=== PATIENT | male | born 1985 | race Caucasian/White ===

== ENCOUNTER 2020-09-10 22:57 | Emergency (ER) | payer BC, SELFPAY ==
[2020-09-10 23:07] VITALS: BP 136/93; PULSE 135; RESP 18; TEMP 37; O2SAT 97; BMI 20.7
--- NOTE | 2020-09-10 23:14 | HMH.EDMCLR ---
ED Disposition Clinical Impression: Medical clearance for incarceration Disposition: Home, Self-Care Condition on Discharge: Good Instructions: DI for General Condition Additional Instructions: see pcp for follow up Referrals: Vincent Asencio MD [Primary Care Provider] - - Critical Care Critical Care Time: No Attestation: On , the high probability of a clinically significant, sudden or life threatening deterioration of the following system(s) required my full and direct attention, intervention and personal management. The time I documented below is in addition to time spent performing reported procedures but includes the following listed in this critical care notation. Medical Decision Making - Medical Records Medical records reviewed: Yes: I reviewed the patient's medical records. - Afshin Inquiry Pt receiving controlled substance: No Vital Signs: 09/10/20 23:07 Temperature 98.6 F Temperature Source Oral Pulse Rate [Right] 135 H Respiratory Rate 18 Blood Pressure [Right Arm] 136/93 H Blood Pressure Mean [Right Arm] 107 Blood Pressure Source [Right Arm] Automatic Cuff Blood Pressure Position [Right Arm] Sitting 02 Sat by Pulse Oximetry 97 Oxygen Delivery Method Room Air - Lab Data Lab results reviewed: Yes: I reviewed the patient's lab results. Medical Clearance HPI - General Chief complaint: Medical Clearance Stated complaint: Medical clearance Time Seen by Provider: 09/10/20 23:14 Mode of Arrival: Ambulatory Source of Information: Patient, Law Enforcement, Medical Record Limitations: No Limitations Description of Symptoms (Recalled from ER Triage Doc. by RN): Pt is a police medical clearance no c/o at this time - History of Present Illness HPI Narrative: no specific c/o MD complaint: medical clearance requested Place: home Traumatic Symptoms: denies traumatic injury Associated Symptoms: denies other symptoms Treatments Prior to Arrival: none [facility] History - Hepatitis A Screen Drug use history?: No High risk sexual behaviors?: No History of sexually transmitted infection?: No Currently employed?: No Childcare worker?: No Do you have indoor plumbing?: Yes Do you have electricity?: Yes Attestation statement:: This patient has been screened for Hepatitis A risk factors. I have reviewed the patient's past medical history: Yes Medical History: Denies:: Diabetes Mellitus Type 1, Diabetes Mellitus Type 2 - Social History Smoking Status: Current every day smoker Tobacco Type: cigarettes # Packs/Day (cigarettes): 2 Alcohol Intake: current Alcohol Intake Frequency:: 3 or more drinks per day Occupational Status: employed ROS Obtained: Yes All systems reviewed & no additional complaints - Constitutional Constitutional: Denies fever(s) - Eyes Eyes: Denies change in vision - ENT Ears, Nose, Mouth, and Throat: Denies sore throat - Cardiovascular Cardiovascular: Denies chest pain - Respiratory Respiratory: Denies cough - Gastrointestinal Gastrointestingal: Denies: abdominal pain - Genitourinary Male Genitourinary: Denies hematuria - Musculoskeletal Musculoskeletal: Denies joint pain - Integumentary/Breasts Skin/Breast: Denies rash - Neurologic Neurologic: Denies seizure-like activity Physical Exam - General General appearance: alert, in no apparent distress - Head Head exam: normocephalic - Eye Eye exam: Present: PERRL, EOMI. Absent: scleral icterus - ENT ENT exam: Present: mucous membranes moist - Neck Neck exam: Present: trachea midline - Respiratory Respiratory exam: Present: normal lung sounds bilaterally. Absent: respiratory distress - Cardiovascular Cardiovascular exam: Present: regular rate. Absent: systolic murmur - Abdominal Exam Abdominal exam: Present: soft - Extremities Exam Extremities exam: Present: full ROM - Neurological Exam Neurological exam: Present: alert, oriented X3, CN II-XII intact. Absent:
[2020-09-10 23:19] VITALS: BP 136/93; PULSE 135; RESP 18; TEMP 37; O2SAT 97
== END 2020-09-10 23:19 | disposition home or self-care (01) ==
LOC: ER 23:35
PROVIDERS: Emergency Provider Emergency Medicine; PCP Family Medicine
DX: Z00.8 Encounter for other general examination (principal); F10.10 Alcohol abuse, uncomplicated; F17.210 Nicotine dependence, cigarettes, uncomplicated; J45.909 Unspecified asthma, uncomplicated; R03.0 Elevated blood-pressure reading, without diagnosis of hypertension
CPT/HCPCS: 99282

== ENCOUNTER 2021-05-21 11:56 | Emergency (ER) | payer BC, SELFPAY ==
[2021-05-21 12:44] VITALS: BP 134/77; PULSE 97; RESP 14; TEMP 36.9; O2SAT 97
--- NOTE | 2021-05-21 12:51 | HMH.EDUTC ---
[facility] [place] Disposition Clinical Impression: URI (upper respiratory infection) Qualifiers: URI type: unspecified URI Qualified Code(s): J06.9 - Acute upper respiratory infection, unspecified Disposition: Home, Self-Care Condition on Discharge: Good Instructions: Sore Throat, Ondansetron, Nausea and Vomiting-Adult Additional Instructions: *Monitor Temp, Over the counter Motrin or Tylenol as directed/as needed Tylenol every 4 hours and Motrin every 6 hours (as long as your family doctor has told you that you can take it) for fever or pain. and straight to ER if unable to lower temp less than 101.0 after medication given *Warm salt water gargles may help to soothe the throat *Throat Lozenges *Warm fluids like tea with honey may help to soothe the throat *Sleep elevated *Humidifier/Vaporizer Your throat swab was sent for culture. Those results are typically sent to your primary care. Be sure to follow up in 2-3 days with your family doctor/primary care physician if no improvement so they can review those result and treat if necessary. If you don?t have a primary care doctor, I recommend you get one but in the mean time, you will have to return to a walk in clinic Follow up IMMEDIATELY for new or worsening symptoms or no Noticeable improvement over the next 48-72 hours. 911 for difficulty breathing or swallowing You were tested for today for COVID19 your test result should be back in the next 24-48 hours, you may check your results online at the [facility] portal if you have trouble accessing your results you may call the [facility] You was given a handout with instructions for Self Quarantine and Self isolation for while you wait on test results and what to do if they are positive If you are positive the Health Dept will be contacting you also Make sure to take your Vitamins Vit. C Vit D and Zinc if you can take them Prescriptions: Ondansetron [Zofran 4mg ODT] 4 mg PO TIDP PRN #20 tab PRN Reason: Nausea Transmission Status: Received by [facility] #[id number] Referrals: Vincent Asencio MD [Primary Care Provider] - As needed Forms: Work/School Release Time of Disposition: 13:33 Medical Decision Making - Afshin Inquiry Pt receiving controlled substance: No Afshin was queried for this patient: No Vital Signs: 05/21/21 12:44 05/21/21 13:22 Temperature 98.5 F 98.5 F Temperature Source Oral Pulse Rate 97 H Pulse Rate [Left] 97 H Respiratory Rate 14 16 Blood Pressure 134/77 Blood Pressure [Right Arm] 134/77 Blood Pressure Mean [Right Arm] 96 02 Sat by Pulse Oximetry 97 - Lab Data Lab results reviewed: Yes: I reviewed the patient's lab results. Lab Results 05/21/21 12:45: Strep Scn Rapid Clinic Negative Orders (Tests/Meds): ED MEDICATIONS Discontinued Medications Generic Name Dose Route Start Last Admin Trade Name Freq PRN Reason Stop Dose Admin Ondansetron HCl 4 mg 05/21/21 12:56 05/21/21 13:00 Ondansetron 4mg Odt SL 05/21/21 12:57 4 mg ONCE ONE Administration ORDERS Category Date Time Status Covid-19 Nasal PCR ([facility]) Routine Lab 05/21/21 12:50 Received Strep Screen Confirmation Routine Micro 05/21/21 12:45 Received Medical Decision Narrative: Patient drink seira mist in [facility] without vomiting [facility] [place] HPI - General Stated complaint: sore throat, unable to swallow/eat Time Seen by Provider: 05/21/21 12:51 Mode of Arrival: Ambulatory Source of Information: Patient Limitations: No Limitations Description of Symptoms (Recalled from Triage Doc. by RN): pt c/o of sore throat, swollen tonsils and painful swallowing. HEENT Symptoms (Recalled from RN notes): Yes (sore throat, swollen tonsils and painful swallowing) Resp Symptoms (Recalled from RN notes): No Skin Symptoms (Recalled from RN notes): No MS Symptoms (Recalled from RN notes): No Functional Status (Recalled from RN notes): na - History of Present Illness Provider Complaint: Patient state that his thro
[2021-05-21 13:06] LABS: UTC Strep Screen (Rapid) Negative (Negative)
[2021-05-21 13:22] VITALS: BP 134/77; PULSE 97; RESP 16; TEMP 36.9
== END 2021-05-21 13:52 | disposition home or self-care (01) ==
PROVIDERS: Emergency Provider Nurse Practitioner; PCP Family Medicine
DX: J06.9 Acute upper respiratory infection, unspecified (principal); Z20.822 Contact with and (suspected) exposure to COVID-19; F17.210 Nicotine dependence, cigarettes, uncomplicated
CPT/HCPCS: 87880; 99202; C9803; G0463; U0003; U0005

== ENCOUNTER → 2021-08-18 11:04 | Outpatient (CLI) | payer OTHER, SELFPAY | PROVIDERS: PCP Family Medicine; Visit Provider Nurse Practitioner | DX: U07.1 COVID-19 (principal) | CPT/HCPCS: C9803; U0003; U0005 ==

== ENCOUNTER 2022-02-20 22:58 | Observation (INO) | payer OTHER, SELFPAY ==
[2022-02-20 23:00] VITALS: BP 121/89; PULSE 120; RESP 16; TEMP 37; O2SAT 99; BMI 18.6
--- NOTE | 2022-02-20 23:14 | ECG_ITS ---
APPROVED REPORT Exam: Resting ECG HR:114 bpm ECG Measurements Heart Rate 114 AXES AK 104 P 74 QRSd 85 QRS 78 QT 330 T 61 QTc 398 Conclusion SINUS TACHYCARDIA WITH SHORT AK INTERVAL POSSIBLE LEFT ATRIAL ENLARGEMENT [-0.1mV P-WAVE IN V1/V2] ABNORMAL RHYTHM ECG UNCONFIRMED REPORT Electronically signed by : Rahul Doan MD 02/22/2022 20:38:44
[2022-02-20 23:23] LABS: POC Glucose,Bedside 102 (70-110)
--- NOTE | 2022-02-20 23:28 | PC.NURSE ---
at BS speaking with pt
[2022-02-20 23:30] VITALS: BP 123/92; RESP 14; O2SAT 97
--- NOTE | 2022-02-20 23:30 | PC.NURSE ---
IV access was established and pt was nauseated with dry heaves. He was given fluids and 4mg of zofran. MD was at bedside speaking with pt and his mother. After speaking with pt he was helped into position of comfort, provided warm blankets, emesis bag at bedside with call light attached to rail and instructed on use. Lights were turned down and pt had no other needs.
--- NOTE | 2022-02-20 23:34 | XR_ITS ---
PROCEDURE INFORMATION: Exam: XR Chest Exam date and time: 02/20/2022 11:54 PM Age: 37 years old Clinical indication: Other: AMS TECHNIQUE: Imaging protocol: Radiologic exam of the chest. Views: 1 view. COMPARISON: No relevant prior studies available. FINDINGS: Lungs: Adequately inflated. No consolidation. Pleural spaces: No pleural effusion. No pneumothorax. Heart/Mediastinum: No cardiomegaly. Bones/joints: No acute fracture. IMPRESSION: No acute findings.
[2022-02-20 23:45] LABS: Basophils # 0.2 K/mm3 (0-0.2); Basophils % 1.7 % (0.1-2.0); Eosinophils # 0.2 K/mm3 (0.0-0.4); Eosinophils % 1.5 % (0.1-12.0); Hematocrit 54.2 % (42.0-52.0); Hemoglobin 17.3 g/dL (14.1-18.0); Lymphocytes # 4.7 K/mm3 (0.7-4.5); Lymphocytes % 33.3 % (10-50); Mean Corpuscular Hemoglobin 36.3 pg (27.0-31.2); Mean Corpuscular Volume 113.4 fl (80-94); Mean Platelet Volume 8.2 fl (7.4-10.4); Monocytes # 0.9 K/mm3 (0.1-1.0); Monocytes % 6.4 % (1.7-9.3); Neutrophils # 8.1 K/mm3 (1.8-7.8); Neutrophils % 57.2 % (37.0-80.0); Platelet Count 458 K/mm3 (142-424); Red Blood Count 4.78 M/mm3 (4.60-6.20); Red Cell Distribution Width 15.4 % (11.5-17.5); White Blood Count 14.2 K/mm3 (4.8-10.8)
--- NOTE | 2022-02-20 23:45 | PC.NURSE ---
RAD at BS for chest XRAY
--- NOTE | 2022-02-20 23:46 | HMH.EDGENADL ---
ED Disposition Clinical Impression: Acute alcoholic pancreatitis Qualifiers: Acute pancreatitis complication: unspecified Qualified Code(s): K85.20 - Alcohol induced acute pancreatitis without necrosis or infection Disposition: Admitted As Inpatient Condition on Discharge: Good - Critical Care Critical Care Time: No Attestation: On 02/20/22, the high probability of a clinically significant, sudden or life threatening deterioration of the following system(s) required my full and direct attention, intervention and personal management. The time I documented below is in addition to time spent performing reported procedures but includes the following listed in this critical care notation. Medical Decision Making - Afshin Inquiry Pt receiving controlled substance: No Vital Signs: 02/20/22 23:00 02/20/22 23:30 02/21/22 00:00 Temperature 98.6 F Temperature Source Oral Pulse Rate Pulse Rate [Right] 120 H Respiratory Rate 16 14 Blood Pressure 123/92 H 130/90 Blood Pressure [Right Arm] 121/89 Blood Pressure Mean 103 Blood Pressure Mean [Right Arm] 99 Blood Pressure Source Blood Pressure Source [Right Arm] Automatic Cuff Blood Pressure Position Blood Pressure Position [Right Arm] Sitting 02 Sat by Pulse Oximetry 99 97 96 Oxygen Delivery Method Room Air 02/21/22 00:30 02/21/22 01:00 02/21/22 01:03 Temperature Temperature Source Pulse Rate 103 H 100 H Pulse Rate [Right] Respiratory Rate 16 Blood Pressure 121/84 124/88 124/88 Blood Pressure [Right Arm] Blood Pressure Mean 96 Blood Pressure Mean [Right Arm] Blood Pressure Source Automatic Cuff Blood Pressure Source [Right Arm] Blood Pressure Position Sitting Blood Pressure Position [Right Arm] 02 Sat by Pulse Oximetry 97 97 98 Oxygen Delivery Method Room Air - Lab Data Lab Results 02/20/22 23:13: POC Glucose 102 02/20/22 23:32: WBC 14.2 H, RBC 4.78, Hgb 17.3, Hct 54.2 H, MCV 113.4 H, MCH 36.3 H, MCHC 32.0, RDW 15.4, Plt Count 458 H, MPV 8.2, Neut % (Auto) 57.2, Lymph % (Auto) 33.3, [place] % (Auto) 6.4, Eos % (Auto) 1.5, Baso % (Auto) 1.7, Neut # (Auto) 8.1 H, Lymph # (Auto) 4.7 H, [place] # (Auto) 0.9, Eos # (Auto) 0.2, Baso # (Auto) 0.2 02/20/22 23:32: PT 10.6, INR 0.93, APTT 23.2 02/20/22 23:32: Sodium 146 H, Potassium 3.1 L, Chloride 106, Carbon Dioxide 28, Anion Gap 15.1 H, BUN 10, Creatinine 0.60 L, Estimated GFR 150, Est GFR ( Amer) 181, Glucose 116 H, Calcium 9.6, Magnesium 1.6, Total Bilirubin 0.4, AST 79 H, ALT 55, Alkaline Phosphatase 154 H, Troponin I < 0.01, Total Protein 7.8, Albumin 4.7, Globulin 3.1, Albumin/Globulin Ratio 1.5, Lipase 969 H 02/20/22 23:32: Lactate 3.3 H 02/20/22 23:32: Plasma/Serum Alcohol 322 H 02/20/22 23:32: D-Dimer 0.86 H 02/20/22 23:34: VBG pH 7.37, VBG pCO2 36.1, VBG pO2 43.9 H, VBG HCO3 20.6 L, VBG Total CO2 21.7 L, VBG O2 Saturation 78.2 H, VBG Base Excess -4.6 L 02/20/22 23:55: Ammonia < 9 L 02/20/22 23:55: SARS-CoV-2 (PCR) Detected A, Influenza A Untype (PCR) Not detected, Influenza Type B (PCR) Not detected Result diagrams: 02/20/22 23:32 02/20/22 23:32 Orders (Tests/Meds): ED MEDICATIONS Generic Name Dose Route Start Last Admin Trade Name Freq PRN Reason Stop Dose Admin Diazepam 10 mg 02/21/22 01:18 Diazepam 10mg/2ml Syringe IV 03/23/22 01:17 Q1HP PRN CIWA >16 Diazepam 5 mg 02/21/22 01:18 Diazepam 10mg/2ml Syringe IV 03/23/22 01:17 Q1HP PRN CIWA Score 8-15 Diazepam 5 mg 02/21/22 01:18 Diazepam 5mg Tablet PO 03/23/22 01:17 Q6HP PRN CIWA 2-7 Famotidine 20 mg 02/21/22 09:00 Famotidine 20mg/2ml Vial IV 03/23/22 08:59 BID MUKESH Folic Acid 1 mg 02/21/22 09:00 Folic Acid 1mg Tablet PO 03/23/22 08:59 DAILY MUKESH Haloperidol Lactate 5 mg 02/21/22 01:18 Haloperidol Lactate 5 Mg/Ml Vial IV 03/23/22 01:17 Q1HP PRN Agitation Lactated Ringer's 1,000 mls @ 999 mls/hr 0
[2022-02-20 23:47] LABS: Chloride 106 mmol/L (98-107); Potassium 3.1 mmoL/L (3.5-5.1); Sodium 146 mmol/L (136-145)
[2022-02-20 23:49] LABS: Alanine Aminotransferase 55 U/L (12-78); Aspartate Amino Transferase 79 U/L (17-59); Blood Urea Nitrogen 10 mg/dl (9-20); Estimated Glomerular Filt Rate 150 ml/min (>60); GFR (African American) 181 ML/MIN (>60)
[2022-02-20 23:50] LABS: Albumin Level 4.7 g/dl (3.5-5.0); Albumin/Globulin Ratio 1.5 (1.1-1.8); Alkaline Phosphatase 154 U/L (38-126); Anion Gap 15.1 mEq/L (5-15); Bilirubin,Total 0.4 mg/dl (0.2-1.3); Calcium 9.6 mg/dl (8.4-10.2); Carbon Dioxide 28 mmol/L (22.0-30.0); Globulin 3.1 g/dL (1.3-3.2); Glucose 116 mg/dl (74-100); Magnesium 1.6 mg/dl (1.6-2.3); Total Protein,Serum 7.8 g/dl (6.3-8.2)
[2022-02-20 23:51] LABS: Activated Partial Thrombo Time 23.2 seconds (22.8-30.6); INR 0.93 (0.9-1.1); Prothrombin Time 10.6 seconds (10.1-12.5)
[2022-02-20 23:54] LABS: Lipase 969 U/L (23-300)
[2022-02-20 23:58] LABS: Ethyl Alcohol 322 mg/dl (0-10); Lactic Acid 3.3 mmol/L (0.7-2.1)
[2022-02-21] VITALS (12 sets, daily range): BP systolic 104–146; BP diastolic 62–94; PULSE 100–140; RESP 16–18; TEMP 36.5–37; O2SAT 96–100; BMI 17.9
[2022-02-21 00:02] LABS: Troponin I < 0.01 ng/ml (0.00-0.034)
--- NOTE | 2022-02-21 00:02 | CT_ITS ---
PROCEDURE INFORMATION: Exam: CT Head Without Contrast Exam date and time: 02/21/2022 12:18 AM Age: 37 years old Clinical indication: Altered mental status/memory loss; Confusion or disorientation; Additional info: AMS, unresponsive TECHNIQUE: Imaging protocol: Computed tomography of the head without contrast. Radiation optimization: All CT scans at this facility use at least one of these dose optimization techniques: automated exposure control; mA and/or kV adjustment per patient size (includes targeted exams where dose is matched to clinical indication); or iterative reconstruction. COMPARISON: No relevant prior studies available. FINDINGS: Brain: Normal. No hemorrhage. Unremarkable white matter. No mass effect. Cerebral ventricles: No ventriculomegaly. Paranasal sinuses: Visualized sinuses are unremarkable. No fluid levels. Mastoid air cells: Visualized mastoid air cells are well aerated. Bones/joints: No acute fracture. Soft tissues: Unremarkable. IMPRESSION: No acute intracranial abnormality. Recommend correlation with history/physical exam clinical concern persists consider further evaluation with MRI.
--- NOTE | 2022-02-21 00:04 | PC.NURSE ---
DR. JUNG MADE AWARE OF ELEVATED LIPASE OF 969.
[2022-02-21 00:08] LABS: VBG Base Excess -4.6 mmol/L (-2.4-2.3); VBG HCO3 20.6 mmol/L (23-30); VBG Oxygen Saturation 78.2 % (50-70); VBG PCO2 36.1 mmol/L (35-51); VBG PH 7.37 mmol/L (7.31-7.41); VBG PO2 43.9 mmol/L (28-40); VBG Total CO2 21.7 mmol/L (23-27)
--- NOTE | 2022-02-21 00:08 | PC.NURSE ---
Pt given warm blanket for comfort
[2022-02-21 00:14] LABS: Ammonia < 9 umol/L (9-30)
--- NOTE | 2022-02-21 00:15 | PC.NURSE ---
Mother updated on POC. Pt was resting in bed. No needs at this time
[2022-02-21 00:23] LABS: D-Dimer 0.86 ug/mL (0.0-0.5)
--- NOTE | 2022-02-21 00:25 | PC.NURSE ---
Pt to CT via stretcher
--- NOTE | 2022-02-21 00:29 | PC.NURSE ---
PT returned from CT
--- NOTE | 2022-02-21 01:04 | PC.NURSE ---
advised she does feel pt is septic at this time and labs are result of alcoholic pancreatitis. No antibiotics needed at this time. Rounded on pt at this time, he was resting comfortably in bed. Woke up him and let him know that his mother had went home and we would call her later with an update. LEt him know that plan was probable admission. Pt verbalized understanding and was agreeable with POC. Pt had no other needs at this time and requested lights off. Call light attached to bed rail.
--- NOTE | 2022-02-21 01:15 | PC.NURSE ---
Dr. Willa hauser
--- NOTE | 2022-02-21 01:16 | PC.NURSE ---
speaking with Dr. Crouch
--- NOTE | 2022-02-21 01:20 | PC.NURSE ---
Notified House of admission and updated pt.
[2022-02-21 01:25] LABS: Influenza A, PCR Not Detected (NotDetected); Influenza B, PCR Not Detected (NotDetected)
--- NOTE | 2022-02-21 01:29 | PC.NURSE ---
VIDHYAWA Score at 3. notified
[2022-02-21 01:46] LABS: Coronavirus 19, PCR Detected (NotDetected)
--- NOTE | 2022-02-21 02:00 | PC.NURSE ---
Pt ambulatory to bathroom with minimal assistance. Pt provided urine sample. Pt back to bed and resting.
[2022-02-21 02:06] LABS: Microscopic, Urine URINE MICROSCOPIC (MICROSCOPIC)
[2022-02-21 02:13] LABS: Appearance,Urine CLEAR (Clear); Bilirubin,Urine Negative (Negative); Blood, Urine Negative (Negative); Color,Urine YELLOW (Yellow); Glucose,Urine (UA) Negative (Negative); Ketones,Urine Negative (Negative); Leukocyte Esterase,Urine Negative (Negative); Nitrate,Urine Negative (Negative); Protein,Urine Negative (Negative); Specific Gravity, Urine 1.015 (1.005-1.030); Urobilinogen,Urine 0.2 EU/dl (0.2)
[2022-02-21 02:16] LABS: Amorphous Sediment,Urine Trace /lpf
--- NOTE | 2022-02-21 02:17 | PC.NURSE ---
Called report to Felicitas After calling report I called his mother to let her know he was covid positive and would not be allowed visitors at this time due to policy. Mother was understanding and agreeable. Advised she would bring him some clothes in the morning and drop them off at the nurses station. Password was set up as: Danny Notified Felicitas
[2022-02-21 02:21] LABS: Barbiturates Screen,Urine Negative ng/ml (<200); Benzodiazepines Screen,Urine Negative ng/ml (<200)
[2022-02-21 02:22] LABS: Amphetamine/Metha Screen,Urine Negative ng/ml (<1000)
[2022-02-21 02:23] LABS: Cannabinoid Screen,Urine Positive ng/ml (<50); Cocaine Screen,Urine Negative ng/ml (<300)
--- NOTE | 2022-02-21 02:23 | PC.NURSE ---
PT ARRIVED TO FLOOR VIA W/C FROM ED W/STAFF @ [id number]
[2022-02-21 02:24] LABS: Methadone Screen,Urine Negative ng/ml (<300); Opiate Screen,Urine Positive ng/ml (<300)
[2022-02-21 02:25] LABS: Phencyclidine Screen,Urine Negative ng/ml (<25)
[2022-02-21 02:26] LABS: Reflex Lactic Add Lactic Reflex
[2022-02-21 03:11] LABS: Lactic Acid Follow Up (RFLX 1) 2.4 mmol/L (0.7-2.1)
[2022-02-21 03:18] LABS: Troponin I < 0.01 ng/ml (0.00-0.034)
--- NOTE | 2022-02-21 05:58 | PC.NURSE ---
PT ADMITTED FOR ETOH PANCREATITIS. WHEN PT ARRIVED TO FLOOR PT WAS IRRITABLE, ANXIOUS, KEPT COMING OUT INTO HALLWAY WITH NO MASK ON SAYING HE WAS GOING TO GO SMOKE. EXPLAINED TO PT THAT HE HAS TESTED POSITIVE FOR COVID. HE CANNOT BE OUT IN THE HALLWAY WITHOUT A MASK. ASKED PT TO GO TO HIS ROOM, THAT I WOULD COME TALK TO HIM. AFTER TALKING WITH PT, HE IS STILL PERSISTENT ABOUT GOING TO SMOKE. 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 HOUSE CAME AND SPOKE TO PT. EXPLAINED TO PT WE COULD GET HIM A NICOTINE PATCH AND MEDICATION TO CALM HIM DOWN. PT FINALLY AGREED TO POC. CIWA SCORE OF 5, MEDICATED PER MAR. MEDICATED X 1 FOR NAUSEA. NICOTINE PATCH APPLIED. IV INFUSING PER ORDER. K+ REPLACED PER ORDER. PT HAS HAD NO COMPLAINTS OF PAIN. ABD SOFT, BS ACTIVE X 4. PT IS BEING MONITORED VIA TELE - NSR/SINUS TACH. SEIZURE PADS IN PLACE. PT IS NOW RESTING. CALL LIGHT IN REACH.
[2022-02-21 07:08] LABS: Basophils # 0.1 K/mm3 (0-0.2); Basophils % 1.2 % (0.1-2.0); Eosinophils # 0.3 K/mm3 (0.0-0.4); Eosinophils % 2.7 % (0.1-12.0); Hematocrit 43.3 % (42.0-52.0); Lymphocytes # 1.5 K/mm3 (0.7-4.5); Lymphocytes % 15.5 % (10-50); Mean Corpuscular HGB Conc 32.5 g/dL (31.8-35.4); Mean Corpuscular Hemoglobin 35.6 pg (27.0-31.2); Mean Corpuscular Volume 109.6 fl (80-94); Monocytes # 0.4 K/mm3 (0.1-1.0); Monocytes % 4.1 % (1.7-9.3); Neutrophils # 7.2 K/mm3 (1.8-7.8); Neutrophils % 76.5 % (37.0-80.0); Platelet Count 369 K/mm3 (142-424); Red Blood Count 3.95 M/mm3 (4.60-6.20); Red Cell Distribution Width 15.6 % (11.5-17.5); White Blood Count 9.4 K/mm3 (4.8-10.8)
[2022-02-21 07:12] LABS: Alanine Aminotransferase 41 U/L (12-78); Albumin Level 3.5 g/dl (3.5-5.0); Albumin/Globulin Ratio 1.5 (1.1-1.8); Alkaline Phosphatase 102 U/L (38-126); Anion Gap 9.7 mEq/L (5-15); Aspartate Amino Transferase 51 U/L (17-59); Bilirubin,Total 0.1 mg/dl (0.2-1.3); Blood Urea Nitrogen 9 mg/dl (9-20); Calcium 8.8 mg/dl (8.4-10.2); Carbon Dioxide 25 mmol/L (22.0-30.0); Chloride 107 mmol/L (98-107); Creatinine Clearance Estimated 159 mL/min (50-200); Estimated Glomerular Filt Rate 185 ml/min (>60); GFR (African American) 224 ML/MIN (>60); Globulin 2.4 g/dL (1.3-3.2); Glucose 165 mg/dl (74-100); Potassium 3.7 mmoL/L (3.5-5.1); Sodium 138 mmol/L (136-145); Total Protein,Serum 5.9 g/dl (6.3-8.2)
[2022-02-21 07:13] LABS: Lactic Acid 2.4 mmol/L (0.7-2.1)
[2022-02-21 07:27] LABS: Troponin I < 0.01 ng/ml (0.00-0.034)
[2022-02-21 07:41] LABS: Hemoglobin 14.1 g/dL (14.1-18.0)
--- NOTE | 2022-02-21 10:03 | HMH.HP ---
*Admission Date: 02/21/22 *Chief complaint: abdominal pain *History of present illness: In summary, this patient is a 37-year-old male with a history of alcohol abuse presented to the emergency department after being found unresponsive at home. Differential diagnoses include intoxication, polysubstance abuse, dehydration, ACS, arrhythmia, carbon monoxide poisoning, intracranial hemorrhage, CVA. Patient is lethargic but oriented at this time with no focal neurologic deficits. He does have nausea and vomiting, but he denies any headache, vision changes, numbness, tingling, unilateral weakness, abdominal pain, or other concerns. He is tachycardic but otherwise vitals are reassuring. He is not hypoxic and has no chest pain. Given this, I doubt pulmonary embolism as a cause. Abdominal exam is benign. Will obtain broad work-up including CBC, CMP, lipase, lactic acid, VBG panel, coags, carbon monoxide level, ethanol level, D-dimer, troponin, magnesium, urinalysis, urine drug screen, chest x-ray, EKG, and CT scan of the head without contrast. Will administer a liter bolus of IV fluids as well as IV thiamine and folate. Will administer IV Zofran for symptomatic relief. On reassessment, the patient is resting comfortably with improved heart rate. Labs concerning for pancreatitis with lipase greater than 900. He also has leukocytosis and mildly elevated lactate. Potassium is low, so oral replacement was ordered. patient is SIRS criteria positive, however he has no infectious source and exam is reassuring. Given this, I feel that this is likely related to his acute alcoholic pancreatitis and will defer antibiotics at this time. Blood cultures were ordered. D-dimer is very mildly elevated, however patient is years criteria negative, so no further work-up for pulmonary embolus is indicated at this time. Patient is still satting well on room air. CT scan of the head without contrast did not demonstrate any acute intracranial abnormalities, and chest x-ray also is within normal limits. Urinalysis and urine drug screen are pending. Given concern for pancreatitis and inability to tolerate oral intake, patient was admitted in stable condition for further evaluation and management. He was given a second liter bolus of IV fluids and maintenance fluids were ordered. CIWA protocol was initiated. This patient is a 37-year-old male with history of daily alcohol abuse presenting to the emergency department for evaluation after being found passed out at home. Patient reports that he has been drinking today, less than he usually does, and he smoked marijuana that he got from his usual person. He had been drinking store bought whiskey, but he is not sure how much he drank. He denies ingestion of anything else or any history of opiate or IV drug use. He states that he does not remember passing out, and he is not sure how long he was out. He was found at home by family unconscious on the floor and lethargic. Since arrival to the emergency department, he has been nauseated and has had vomiting, but he denies any other concerns, such as headache, vision changes, numbness, tingling, unilateral weakness, chest pain, shortness of breath, abdominal pain, changes in bowel movements, rashes, or swelling. Nothing like this is ever happened before. [facility] History I have reviewed the patient's past medical history: Yes Medical History: Denies:: Cancer, Diabetes Mellitus Type 1, Diabetes Mellitus Type 2, MRSA *Have you ever received a pneumonia vaccine?: No *Have you received a flu vaccine this season?: No Other Surgeries: Yes: No Previous Surgery Amputation: No - *Social History Smoking Status: Current every day smoker Tobacco Type: cigarettes # Packs/Day (cigarettes): 1 Alcohol Intake: current Alcohol Intake Frequency:: 3 or more drinks per day *Occupational Status:: employed *Travel in the last 8 weeks: None Family Hx:: Hypertension Review of Systems - Review of Systems
--- NOTE | 2022-02-21 11:04 | HMH.HPDC ---
General - General Admission date:: 02/21/22 Discharge date: 02/21/22 *Admission Date: 02/21/22 *Chief complaint: intoxicated, abdominal pain *History of present illness: 37-year-old male with history of daily use last night for evaluation after being found passed out. Reportedly had been drinking marijuana. Reportedly was drinking whiskey all day. Found home by family unconscious. They told EMS who brought him to the emergency room for further evaluation. Was noted to be nauseated. Findings such as headache, numbness or tingling, weakness, chest pain,. Some mild abdominal pain proportion to exam. On evaluation in the ER, patient was found to have an elevated alcohol level. Enzymes positive for pancreatitis. Slight lab abnormalities. Also positive for COVID. Was admitted for fluid resuscitation and monitoring overnight, and alcohol withdrawal. Patient slept well and responded well to IV fluids. No significant complaints this morning other than tingling in his feet. No further vomiting or nausea [facility] History I have reviewed the patient's past medical history: Yes Medical History: Denies:: Cancer, Diabetes Mellitus Type 1, Diabetes Mellitus Type 2, MRSA *Have you ever received a pneumonia vaccine?: No *Have you received a flu vaccine this season?: No Other Surgeries: Yes: No Previous Surgery Amputation: No - *Social History Smoking Status: Current every day smoker Tobacco Type: cigarettes # Packs/Day (cigarettes): 1 Alcohol Intake: current Alcohol Intake Frequency:: 3 or more drinks per day *Occupational Status:: employed *Travel in the last 8 weeks: None Family Hx:: Hypertension Review of Systems - Review of Systems Review of systems:: pertinent systems reviewed and negative unless documented below (14 point review of systems performed, pertinent positives and negatives as per HPI) Exam Vital signs and Labs for Last 24 Hours: Temp Pulse Resp BP Pulse Ox 98.0 F 113 H 16 138/90 100 02/21/22 07:44 02/21/22 07:44 02/21/22 07:44 02/21/22 07:44 02/21/22 07:44 Laboratory Results - last 24 hr 02/20/22 23:13: POC Glucose 102 02/20/22 23:32: WBC 14.2 H, RBC 4.78, Hgb 17.3, Hct 54.2 H, MCV 113.4 H, MCH 36.3 H, MCHC 32.0, RDW 15.4, Plt Count 458 H, MPV 8.2, Neut % (Auto) 57.2, Lymph % (Auto) 33.3, [place] % (Auto) 6.4, Eos % (Auto) 1.5, Baso % (Auto) 1.7, Neut # (Auto) 8.1 H, Lymph # (Auto) 4.[address] H, [place] # (Auto) 0.9, Eos # (Auto) 0.2, Baso # (Auto) 0.2 02/20/22 23:32: PT 10.6, INR 0.93, APTT 23.2 02/20/22 23:32: Sodium 146 H, Potassium 3.1 L, Chloride 106, Carbon Dioxide 28, Anion Gap 15.1 H, BUN 10, Creatinine 0.60 L, Estimated GFR 150, Est GFR ( Amer) 181, Glucose 116 H, Calcium 9.6, Magnesium 1.6, Total Bilirubin 0.4, AST 79 H, ALT 55, Alkaline Phosphatase 154 H, Troponin I < 0.01, Total Protein 7.8, Albumin 4.7, Globulin 3.1, Albumin/Globulin Ratio 1.5, Lipase 969 H 02/20/22 23:32: Lactate 3.3 H 02/20/22 23:32: Plasma/Serum Alcohol 322 H 02/20/22 23:32: D-Dimer 0.86 H 02/20/22 23:34: VBG pH 7.37, VBG pCO2 36.1, VBG pO2 43.9 H, VBG HCO3 20.6 L, VBG Total CO2 21.7 L, VBG O2 Saturation 78.2 H, VBG Base Excess -4.6 L 02/20/22 23:55: Ammonia < 9 L 02/20/22 23:55: SARS-CoV-2 (PCR) Detected A, Influenza A Untype (PCR) Not detected, Influenza Type B (PCR) Not detected 02/21/22 01:59: Urine Color Yellow, Urine Appearance Clear, Urine pH 6.0, Ur Specific [place] 1.015, Urine Protein Negative, Urine Glucose (UA) Negative, Urine Ketones Negative, Urine Blood Negative, Urine Nitrate Negative, Urine Bilirubin Negative, Urine Urobilinogen 0.2, Ur Leukocyte Esterase Negative, Amorphous Sediment Trace 02/21/22 01:59: Urine Opiates Screen Positive H, Urine Methadone Screen Negative, Ur Barbituates Screen Negative, Ur Phencyclidine Scrn Negative, Ur Amphetamines Screen Negative, U Benzodiazepines Scrn Negative, Urine Cocaine Screen Negative, U Marijuana (THC) Screen Positive H 02/21/22 02:45: Troponin I < 0.01 02/21/22 02:45: Lact
--- NOTE | 2022-02-21 11:24 | HMH.PHAVTE ---
[facility] VTE Monitoring - Patient Demographics Admission date: 02/21/22 Report Date: 02/21/22 Time: 11:24 Allergies/Adverse Reactions: Patient Allergies No Known Allergies Allergy (Verified 05/21/21 12:46) Height: 1.78 m Weight: 56.784 kg Patient Problems: Current Active Problems Acute alcoholic pancreatitis (Acute) COVID-19 (Acute) - VTE Risk Labs: VTE Related Lab Results Hgb 14.1 g/dL (14.1-18.0) D 02/21/22 06:57 Hct 43.3 % (42.0-52.0) 02/21/22 06:57 Plt Count 369 K/mm3 (142-424) 02/21/22 06:57 PT 10.6 seconds (10.1-12.5) 02/20/22 23:32 INR 0.93 (0.9-1.1) 02/20/22 23:32 APTT 23.2 seconds (22.8-30.6) 02/20/22 23:32 BUN 9 mg/dl (9-20) 02/21/22 06:57 Creatinine 0.50 mg/dl (0.66-1.25) L 02/21/22 06:57 Estimated Creat Clear 159 mL/min (50-200) 02/21/22 06:57 VTE Score: 1 VTE Risk Level: Very Low Risk - Prophylaxis Types of VTE Prophylaxis: TEDS Knee High Location of Applied Device: Bilateral Lower Extremeties (TEDS), Not Applicable
--- NOTE | 2022-02-22 14:24 | CARE MANAGER ---
Spoke with patient related to hospital stay. He states that he is making it. The only pain he is having is in his feet but he has neuropathy. Encouraged him to follow up with doctor. He reports decreased appetite and we discussed that with ascites or bloating of his stomach could cause that as well. He needs to follow up with MD. ELISEO Barr
== END 2022-02-21 11:47 | disposition home or self-care (01) ==
LOC: ER 02-21 00:09 → 2ND 02-21 01:31
PROVIDERS: Admitting Provider Internal Medicine Adolescent Medicine; Emergency Provider Emergency Medicine; PCP Internal Medicine Adolescent Medicine; Visit Provider Internal Medicine Adolescent Medicine
DX: U07.1 COVID-19 (principal); K85.20 Alcohol induced acute pancreatitis without necrosis or infection; F17.210 Nicotine dependence, cigarettes, uncomplicated; F10.229 Alcohol dependence with intoxication, unspecified; F11.90 Opioid use, unspecified, uncomplicated; Y90.8 Blood alcohol level of 240 mg/100 ml or more; F12.920 Cannabis use, unspecified with intoxication, uncomplicated
CPT/HCPCS: 36415; 70450; 71045; 80053; 80305; 81001; 82140; 82803; 82962; 83605; 83690; 83735; 84484; 85025; 85378; 85610; 85730; 87040; 93005; 99285; C9803; G0378; J2405; U0003; U0005

== ENCOUNTER 2024-01-20 11:34 | Emergency (ER) | payer OTHER, SELFPAY ==
[2024-01-20] VITALS (9 sets, daily range): BP systolic 110–124; BP diastolic 75–94; PULSE 87–124; RESP 14–18; TEMP 36.7–36.8; O2SAT 97–99; BMI 17.2
--- NOTE | 2024-01-20 11:54 | ECG_ITS ---
APPROVED REPORT Exam: Resting ECG HR:103 bpm ECG Measurements Heart Rate 103 AXES OR 123 P 82 QRSd 91 QRS 80 QT 349 T 61 QTc 409 Conclusion SINUS TACHYCARDIA POSSIBLE LEFT ATRIAL ENLARGEMENT [-0.1mV P-WAVE IN V1/V2] ABNORMAL RHYTHM ECG Electronically signed by : CECI JUNG, 01/20/2024 15:57:05
[2024-01-20 12:14] LABS: VBG Base Excess 9.9 mmol/L (-2.4-2.3); VBG HCO3 34.6 mmol/L (23-30); VBG Oxygen Saturation 44.6 % (50-70); VBG PCO2 56.8 mmol/L (35-51); VBG Total CO2 36.4 mmol/L (23-27)
[2024-01-20 12:16] LABS: Lactate Venous 2.2 mmol/L (0.4-2.0)
--- NOTE | 2024-01-20 12:23 | PC.NURSE ---
DR JUNG AT BEDSIDE
--- NOTE | 2024-01-20 12:27 | [facility].EDGENADL ---
Discharge Plan Disposition Patient Disposition: Home, Self-Care Chief Complaint: Weakness Prescriptions Prescriptions: No Action albuterol sulfate [ProAir HFA] 90 mcg/actuation HFA aerosol inhaler inhalation gabapentin 300 mg capsule See Rx Instructions PO HS Rx Instructions: 200mg orally at bedtime nightly; thiamine HCl (vitamin B1) 250 mg tablet 250 mg PO DAILY MDD 250 mg Qty: 90 3RF Referrals Follow up/Referrals: Provider,Referral, MD [Primary Care Provider] - See instructions Activity Restrictions/Add. Instructions Additional Instructions/Restrictions: Call your family doctor to establish care for this visit to the emergency department and schedule follow-up within 48 hours to ensure improvement. If you have any worsening of your condition or any other concerning signs or symptoms, return to the emergency department or your primary care doctor for further evaluation. Clinical Impressions Clinical Impression: Peripheral neuropathy, Unintentional weight loss, Hyponatremia, Elevated hemoglobin, Elevated serum free T4 level, Anorexia Discharge ED Provider: Luciano Jorge General Adult HPI <Latosha Camacho DO - Last Filed: 01/20/24 15:30> General Chief complaint: Weakness Stated complaint: dehydrated body aches Time Seen by Provider: 01/20/24 12:05 Mode of Arrival: Ambulatory Source of Information: Patient Limitations: No Limitations Description of Symptoms (Recalled from ER Triage Doc. by RN): PT TO THE ED WITH MULTIPLE COMPLAINTS INCLUDING DEHYDRATION, LACK OF APPETITE, DECREASE IN ORAL INTAKE AND EXTREME WEIGHT LOSS. PT REPORTS HE SUFFERED FROM CHRONIC ALCOHOL ABUSE AND HAS BEEN SOBER FOR TWO WEEKS. PT REPORTS SINCE BEING SOBER HE HAS STRUGGLED WITH INTERMITTEN BLURRED VISION IN HIS RIGHT EYE AND INTERMITTEN NUMBNESS IN HIS MOUTH AND ON THE SURFACE OF HIS SKIN. PT HAS SEEN HIS PCP AND NEUROLOGY AND HAS A CT SCAN SCHEDULED FOR 01/30/24 History of Present Illness HPI narrative: This patient is a 38-year-old male presenting to the emergency department with complaints of dehydration and malnutrition. Patient reports that he has a history of alcohol abuse with daily drinking from age [age]. He has been sober for approximately 2 weeks. He notes that many months ago, he started having numbness and tingling from his lower face down, including all 4 extremities. He also notes progressively worsening visual loss. He has had poor appetite because his mouth is numb and he is not able to eat very much as a result of this. He he also notes that he has had some nausea. He was advised that he had low vitamin B1 and B12 and he was referred to neurology for the symptoms by his primary care provider. He saw neurology approximately 4 days ago on medical record review. Per the neurology note, they feel that this is likely related to his vitamin deficiency secondary to alcohol abuse. He is awaiting outpatient MRI for [employer] demyelination as well as outpatient upper GI scope to evaluate his nausea and bloating. He notes he is just concerned because he feels like things are getting worse and he feels himself deteriorating. He states he is having a lot of joint aching and pains because he feels like his body is digesting itself. Related Data Home Medications Medication Instructions Recorded Confirmed albuterol sulfate 90 mcg/actuation g inhalation 03/17/22 01/16/24 aerosol inhaler (ProAir HFA) gabapentin 300 mg capsule See Rx Instructions PO HS 01/16/24 neuropathic pain Previous Rx's Medication Instructions Recorded thiamine HCl (vitamin B1) 250 mg 250 mg PO DAILY Alcohol related 01/16/24 tablet neuropathy #90 tabs Allergies Allergy/AdvReac Type Severity Reaction Status Date / Time No Known Allergies Allergy Verified 01/16/24 09:32 [facility] <Latosha Camacho DO - Last Filed: 01/20/24 15:30> [facility] Disclaimer: The information contained in this section may have been updated after the patient was seen, as this information can be updated by other users. Medical History Depression Neuropathy Family History Other Cancer Heart attack Skin cancer Social History Smoking Status: Never smoker alcohol intake: current alcohol intake frequency: holidays/special occasions only substance use type: marijuana current occupational status: unemployed Travel in the last 8 weeks: None household members: none housing: apartment marital status: number of children: 2 <Latosha Camacho DO - Last Filed: 01/20/24 15:30> ROS Obtained: Yes All systems reviewed & no additional complaints except as documented Physical Exam <DO Owen Garvey Last Filed: 01/20/24 15:30> General General appearance: alert, in no apparent distress and cachectic Head Head exam: atraumatic and normocephalic Eye Eye exam: Present normal appearance, PERRL and EOMI ENT ENT exam: Present normal oropharynx, mucous membranes dry and normal external ear exam Neck Neck exam: Present normal inspection, full ROM and trachea midline; Absent tenderness Chest Chest inspection: Present normal inspection and symmetric chest wall rise; Absent tenderness Respiratory Respiratory exam: Present normal lung sounds bilaterally; Absent respiratory distress, wheezes, stridor or accessory muscle use Cardiovascular Cardiovascular exam: Present normal rhythm and tachycardia Abdominal Exam Abdominal exam: Present soft; Absent distention, tenderness or guarding Extremities Exam Extremities exam: Present normal inspection, full ROM and normal capillary refill; Absent tenderness or edema Back Exam Back exam: Present normal inspection and full ROM; Absent tenderness Neurological Exam Neurological exam: Present alert, oriented X3 and CN II-XII intact Psychiatric Psychiatric exam: Present normal affect and normal mood Skin Skin exam: Present warm and dry Medical Decision Making <Latosha Camacho, DO - Last Filed: 01/20/24 15:30> Medical Records Medical records reviewed: Yes I reviewed the patient's medical records. Afshin Inquiry Pt receiving controlled substance: No Vital Signs: 01/20/24 11:35 01/20/24 12:30 01/20/24 13:00 Temperature 98.2 F Temperature Source Oral Pulse Rate 95 H 94 H Pulse Rate [Left Radial] 124 H Respiratory Rate 16 Blood Pressure 117/90 124/93 H Blood Pressure [Right Arm] 115/94 H Blood Pressure Mean 98 102 Blood Pressure Mean [Right Arm] 101 Blood Pressure Source [Right Arm] Automatic Cuff Blood Pressure Position [Right Arm] Sitting 02 Sat by Pulse Oximetry 98 97 97 Oxygen Delivery Method Room Air 01/20/24 13:30 01/20/24 14:00 01/20/24 14:30 Temperature Temperature Source Pulse Rate 98 H 87 88 Pulse Rate [Left Radial] Respiratory Rate 18 15 14 Blood Pressure 114/85 110/78 117/80 Blood Pressure [Right Arm] Blood Pressure Mean Blood Pressure Mean [Right Arm] Blood Pressure Source [Right Arm] Blood Pressure Position [Right Arm] 02 Sat by Pulse Oximetry 99 97 99 Oxygen Delivery Method Room Air Room Air Room Air 01/20/24 15:00 01/20/24 15:30 Temperature Temperature Source Pulse Rate 89 Pulse Rate [Left Radial] Respiratory Rate 16 Blood Pressure 114/75 119/86 Blood Pressure [Right Arm] Blood Pressure Mean 97 Blood Pressure Mean [Right Arm] Blood Pressure Source [Right Arm] Blood Pressure Position [Right Arm] 02 Sat by Pulse Oximetry 99 99 Oxygen Delivery Method Room Air Room Air Lab Data Lab results reviewed: Yes I reviewed the patient's lab results. Lab Results 01/20/24 12:00: WBC 9.2, RBC 5.57, Hgb 20.5 H, Hct 61.5 H*, MCV 110.4 H, MCH 36.9 H, MCHC 33.5, RDW 16.7, Plt Count 277, MPV 8.2, Neut % (Auto) 71.9, Lymph % (Auto) 20.8, [place] % (Auto) 6.2, Eos % (Auto) 0.5, Baso % (Auto) 0.6, Neut # (Auto) 6.6, Lymph # (Auto) 1.9, [place] # (Auto) 0.6, Eos # (Auto) 0.0, Baso # (Auto) 0.1, PT 11.3, INR 1.01, APTT 27.7, Sodium 134 L, Potassium 3.6, Chloride 91 L, Carbon Dioxide 37 H, Anion Gap 9.6, BUN 8 L, Creatinine 0.60 L, Estimated Creat Clear 123, Estimated GFR 149, Est GFR ( Amer) 181, Glucose 123 H, Calcium 10.2, Phosphorus 3.7, Magnesium 1.7, Total Bilirubin 1.4 H, AST 47, ALT 44, Alkaline Phosphatase 67, Total Protein 7.6 D, Albumin 4.4, Globulin 3.2, Albumin/Globulin Ratio 1.4, Lipase 60, Vitamin B12 479 01/20/24 12:00: Vitamin B12 522, Folate 4.17, TSH 1.24, Thyroxine (T4) 15.2 H 01/20/24 12:06: VBG pH 7.40, VBG pCO2 56.8 H, VBG pO2 22.0 L, VBG HCO3 34.6 H, VBG Total CO2 36.4 H, VBG O2 Saturation 44.6 L, VBG Base Excess 9.9 H, VBG Lactic Acid 2.2 H 01/20/24 15:15: Urine Color Yellow, Urine Appearance Clear, Urine pH 7.5, Ur Specific [place] <= 1.005, Urine Protein Negative, Urine Glucose (UA) Negative, Urine Ketones Trace, Urine Blood Negative, Urine Nitrate Negative, Urine Bilirubin 1+ A, Urine Urobilinogen 4.0, Ur Leukocyte Esterase Negative 01/20/24 12:00 01/20/24 12:00 Orders (Tests/Meds): ED MEDICATIONS Generic Name Dose Route Start Last Admin Trade Name Frejonathan PRN Reason Stop Dose Admin Sodium Chloride 10 ml 01/20/24 13:22 01/20/24 13:24 Sodium Chloride 0.9% 10ml Syr (Rad Only) IV 02/19/24 13:21 10 ml NEEDED PRN Administration Maintain IV Site Discontinued Medications Generic Name Dose Route Start Last Admin Trade Name Freq PRN Reason Stop Dose Admin Acetaminophen 1,000 mg 01/20/24 12:56 01/20/24 13:10 Acetaminophen 500mg Tab PO 01/20/24 12:57 1,000 mg ONCE ONE Administration Lactated Ringer's 1,000 mls @ 999 mls/hr 01/20/24 12:56 01/20/24 13:11 Lactated Ringer's 1000 Ml Bag IV 01/20/24 13:56 999 mls/hr .Q1H1M ONE Administration Iopamidol 75 ml 01/20/24 13:22 01/20/24 13:24 Iopamidol-370 (76%);100ml Bottle IV 01/20/24 13:23 75 ml ONCE ONE Administration Iopamidol 100 ml 01/20/24 13:23 01/20/24 13:24 Iopamidol-300 (61%) 100ml Vial IV 01/20/24 13:24 100 ml ONCE ONE Administration Protocol Ketorolac Tromethamine 15 mg 01/20/24 12:56 01/20/24 13:11 Ketorolac 30mg/Ml Vial IV 01/20/24 12:57 15 mg ONCE ONE Administration Pantoprazole Sodium 40 mg 01/20/24 12:56 01/20/24 13:10 Pantoprazole 40mg Tablet PO 01/20/24 12:57 40 mg ONCE ONE Administration ORDERS Category Date Time Status CT abdomen pelvis w con Stat Cat Scan 01/20/24 12:[address] chest w con Stat Cat Scan 01/20/24 12:[address] head/brain wo/w con Stat Cat Scan 01/20/24 12:33 Completed Activated Partial Thrombo Time Stat Lab 01/20/24 12:00 Completed B1 level [Vitamin B1] Stat Lab 01/20/24 12:25 Received CBC w/Auto Diff [Complete Blood Count Auto Diff] Stat Lab 01/20/24 12:00 Completed CMP [Comprehensive Metabolic Panel] Stat Lab 01/20/24 12:00 Completed Folate Stat Lab 01/20/24 12:00 Completed Hepatitis Panel Stat Lab 01/20/24 12:00 Received Lipase Stat Lab 01/20/24 12:00 Completed MAG [Magnesium] Stat Lab 01/20/24 12:00 Completed Phosphorous Stat Lab 01/20/24 12:00 Completed Prothrombin Time INR Stat Lab 01/20/24 12:00 Completed T4 (Thyroxine) Stat Lab 01/20/24 12:00 Completed TSH [Thyroid Stimulating Hormone] Stat Lab 01/20/24 12:00 Completed UA [Urinalysis and Microscopic] Stat Lab 01/20/24 15:15 Results Vitamin B12 Stat Lab 01/20/24 12:00 Completed Vitamin B12 Stat Lab 01/20/24 12:00 Completed VBG [Venous Blood Gas] Stat RT 01/20/24 12:06 Completed ECG Data Tracing #1: I reviewed this ECG and interpreted as documented below: Sinus tachycardia with a ventricular rate of [address] changes concerning for ischemia. Normal axis and intervals. ECG initial impression date: 01/20/24 ECG initial impression time: 11:56 Medical Decision Narrative: In summary, this patient is a 38-year-old male presenting to the Emergency Department for evaluation of poor appetite, unintentional weight loss, dehydration, and malnutrition. Differential diagnoses considered include but are not limited to vitamin deficiencies, malnutrition, dehydration, electrolyte derangements, cirrhosis, hepatitis, malignancy, demyelination. Ruling out the most morbid conditions drove assessment. It should be noted patient's history includes alcohol abuse which is reportedly now at goal therapy. This complicates all aspects of care by increasing patient's risk for morbidity. I reviewed patient's past medical records and noted previous evaluation by neurology as per HPI. On exam, the patient is resting comfortably in bed in no acute distress. He is cachectic. He is mildly tachycardic and mucous membranes appear dry, but otherwise exam is reassuring. Workup included broad lab evaluation to evaluate for metabolic derangements and vitamin deficiencies as well as CT head without contrast, chest x-ray, and EKG. EKG obtained is reassuring. He was given a bolus of IV fluids as well as IV Zofran, Pepcid, and Toradol for symptoms. I also ordered CT scan of the chest, abdomen and pelvis with IV contrast to evaluate for structural abnormality or malignancy as a cause that the patient cannot tolerate oral intake. I independently interpreted CT scan prior to the radiologist read and noted no obvious acute large masses concerning for malignant process. Please see their read for final interpretation. Labs were obtained that demonstrated polycythemia, mildly elevated T4 with normal TSH, mildly elevated bilirubin. Labs overall are very reassuring. Patient does not have any significant hypoalbuminemia. Urinalysis is pending. P.o. challenge also pending. Patient care signed to the oncoming provider, Dr. Jorge. <Luciano Jorge MD - Last Filed: 01/20/24 15:47> Vital Signs: 01/20/24 11:35 01/20/24 12:30 01/20/24 13:00 Temperature 98.2 F Temperature Source Oral Pulse Rate 95 H 94 H Pulse Rate [Left Radial] 124 H Respiratory Rate 16 Blood Pressure 117/90 124/93 H Blood Pressure [Right Arm] 115/94 H Blood Pressure Mean 98 102 Blood Pressure Mean [Right Arm] 101 Blood Pressure Source [Right Arm] Automatic Cuff Blood Pressure Position [Right Arm] Sitting 02 Sat by Pulse Oximetry 98 97 97 Oxygen Delivery Method Room Air 01/20/24 13:30 01/20/24 14:00 01/20/24 14:30 Temperature Temperature Source Pulse Rate 98 H 87 88 Pulse Rate [Left Radial] Respiratory Rate 18 15 14 Blood Pressure 114/85 110/78 117/80 Blood Pressure [Right Arm] Blood Pressure Mean Blood Pressure Mean [Right Arm] Blood Pressure Source [Right Arm] Blood Pressure Position [Right Arm] 02 Sat by Pulse Oximetry 99 97 99 Oxygen Delivery Method Room Air Room Air Room Air 01/20/24 15:00 01/20/24 15:30 Temperature Temperature Source Pulse Rate 89 Pulse Rate [Left Radial] Respiratory Rate 16 Blood Pressure 114/75 119/86 Blood Pressure [Right Arm] Blood Pressure Mean 97 Blood Pressure Mean [Right Arm] Blood Pressure Source [Right Arm] Blood Pressure Position [Right Arm] 02 Sat by Pulse Oximetry 99 99 Oxygen Delivery Method Room Air Room Air Lab Data Lab Results 01/20/24 12:00: WBC 9.2, RBC 5.57, Hgb 20.5 H, Hct 61.5 H*, MCV 110.4 H, MCH 36.9 H, MCHC 33.5, RDW 16.7, Plt Count 277, MPV 8.2, Neut % (Auto) 71.9, Lymph % (Auto) 20.8, [place] % (Auto) 6.2, Eos % (Auto) 0.5, Baso % (Auto) 0.6, Neut # (Auto) 6.6, Lymph # (Auto) 1.9, [place] # (Auto) 0.6, Eos # (Auto) 0.0, Baso # (Auto) 0.1, PT 11.3, INR 1.01, APTT 27.7, Sodium 134 L, Potassium 3.6, Chloride 91 L, Carbon Dioxide 37 H, Anion Gap 9.6, BUN 8 L, Creatinine 0.60 L, Estimated Creat Clear 123, Estimated GFR 149, Est GFR ( Amer) 181, Glucose 123 H, Calcium 10.2, Phosphorus 3.7, Magnesium 1.7, Total Bilirubin 1.4 H, AST 47, ALT 44, Alkaline Phosphatase 67, Total Protein 7.6 D, Albumin 4.4, Globulin 3.2, Albumin/Globulin Ratio 1.4, Lipase 60, Vitamin B12 479 01/20/24 12:00: Vitamin B12 522, Folate 4.17, TSH 1.24, Thyroxine (T4) 15.2 H 01/20/24 12:06: VBG pH 7.40, VBG pCO2 56.8 H, VBG pO2 22.0 L, VBG HCO3 34.6 H, VBG Total CO2 36.4 H, VBG O2 Saturation 44.6 L, VBG Base Excess 9.9 H, VBG Lactic Acid 2.2 H 01/20/24 15:15: Urine Color Yellow, Urine Appearance Clear, Urine pH 7.5, Ur Specific [place] <= 1.005, Urine Protein Negative, Urine Glucose (UA) Negative, Urine Ketones Trace, Urine Blood Negative, Urine Nitrate Negative, Urine Bilirubin 1+ A, Urine Urobilinogen 4.0, Ur Leukocyte Esterase Negative Orders (Tests/Meds): ED MEDICATIONS Generic Name Dose Route Start Last Admin Trade Name Freq PRN Reason Stop Dose Admin Sodium Chloride 10 ml 01/20/24 13:22 01/20/24 13:24 Sodium Chloride 0.9% 10ml Syr (Rad Only) IV 02/19/24 13:21 10 ml NEEDED PRN Administration Maintain IV Site Discontinued Medications Generic Name Dose Route Start Last Admin Trade Name Freq PRN Reason Stop Dose Admin Acetaminophen 1,000 mg 01/20/24 12:56 01/20/24 13:10 Acetaminophen 500mg Tab PO 01/20/24 12:57 1,000 mg ONCE ONE Administration Lactated Ringer's 1,000 mls @ 999 mls/hr 01/20/24 12:56 01/20/24 13:11 Lactated Ringer's 1000 Ml Bag IV 01/20/24 13:56 999 mls/hr .Q1H1M ONE Administration Iopamidol 75 ml 01/20/24 13:22 01/20/24 13:24 Iopamidol-370 (76%);100ml Bottle IV 01/20/24 13:23 75 ml ONCE ONE Administration Iopamidol 100 ml 01/20/24 13:23 01/20/24 13:24 Iopamidol-300 (61%) 100ml Vial IV 01/20/24 13:24 100 ml ONCE ONE Administration Protocol Ketorolac Tromethamine 15 mg 01/20/24 12:56 01/20/24 13:11 Ketorolac 30mg/Ml Vial IV 01/20/24 12:57 15 mg ONCE ONE Administration Pantoprazole Sodium 40 mg 01/20/24 12:56 01/20/24 13:10 Pantoprazole 40mg Tablet PO 01/20/24 12:57 40 mg ONCE ONE Administration ORDERS Category Date Time Status CT abdomen pelvis w con Stat Cat Scan 01/20/24 12:[address] chest w con Stat Cat Scan 01/20/24 12:[address] head/brain wo/w con Stat Cat Scan 01/20/24 12:33 Completed Activated Partial Thrombo Time Stat Lab 01/20/24 12:00 Completed B1 level [Vitamin B1] Stat Lab 01/20/24 12:25 Received CBC w/Auto Diff [Complete Blood Count Auto Diff] Stat Lab 01/20/24 12:00 Completed CMP [Comprehensive Metabolic Panel] Stat Lab 01/20/24 12:00 Completed Folate Stat Lab 06/28/24 12:00 Completed Hepatitis Panel Stat Lab 01/20/24 12:00 Received Lipase Stat Lab 01/20/24 12:00 Completed MAG [Magnesium] Stat Lab 01/20/24 12:00 Completed Phosphorous Stat Lab 01/20/24 12:00 Completed Prothrombin Time INR Stat Lab 01/20/24 12:00 Completed T4 (Thyroxine) Stat Lab 01/20/24 12:00 Completed TSH [Thyroid Stimulating Hormone] Stat Lab 01/20/24 12:00 Completed UA [Urinalysis and Microscopic] Stat Lab 01/20/24 15:15 Results Vitamin B12 Stat Lab 01/20/24 12:00 Completed Vitamin B12 Stat Lab 01/20/24 12:00 Completed VBG [Venous Blood Gas] Stat RT 01/20/24 12:06 Completed Medical Decision Narrative: In summary, this patient is a 38-year-old male presenting to the Emergency Department for evaluation of poor appetite, unintentional weight loss, dehydration, and malnutrition. Differential diagnoses considered include but are not limited to vitamin deficiencies, malnutrition, dehydration, electrolyte derangements, cirrhosis, hepatitis, malignancy, demyelination. Ruling out the most morbid conditions drove assessment. It should be noted patient's history includes alcohol abuse which is reportedly now at goal therapy. This complicates all aspects of care by increasing patient's risk for morbidity. I reviewed patient's past medical records and noted previous evaluation by neurology as per HPI. On exam, the patient is resting comfortably in bed in no acute distress. He is cachectic. He is mildly tachycardic and mucous membranes appear dry, but otherwise exam is reassuring. Workup included broad lab evaluation to evaluate for metabolic derangements and vitamin deficiencies as well as CT head without contrast, chest x-ray, and EKG. EKG obtained is reassuring. He was given a bolus of IV fluids as well as IV Zofran, Pepcid, and Toradol for symptoms. I also ordered CT scan of the chest, abdomen and pelvis with IV contrast to evaluate for structural abnormality or malignancy as a cause that the patient cannot tolerate oral intake. I independently interpreted CT scan prior to the radiologist read and noted no obvious acute large masses concerning for malignant process. Please see their read for final interpretation. Labs were obtained that demonstrated polycythemia, mildly elevated T4 with normal TSH, mildly elevated bilirubin. Labs overall are very reassuring. Patient does not have any significant hypoalbuminemia. Urinalysis is pending. P.o. challenge also pending. Patient care signed to the oncoming provider, Dr. Jorge. Luisito: I assumed primary responsibility for this patient after signout from previous physician. On my evaluation, patient cachectic appearing, but not acutely ill. Independent rotation patient's workup demonstrates polycythemia without signs of malnutrition or dehydration. Kidney function normal, albumin normal, electrolytes normal. CT head, chest, abdomen, pelvis without acute findings. No obvious lymphadenopathy. No evidence of malignancy. Lipase negative. Patient tolerating p.o. intake without issue. Because patient at baseline without signs or symptoms of clinical decompensation, deemed appropriate for discharge. Results were relayed to patient who voiced understanding and were agreeable to outpatient management and follow up. I discussed my clinical impression with patient and answered all questions. At this time, the evidence for any other entities in the differential is insufficient to warrant any further testing or ED observation. This was explained as well. Advisory was given that persistent or worsening symptoms require further evaluation. I confirmed the understanding of this discussion. Critical Care <Latosha Camacho, DO - Last Filed: 01/20/24 15:30> Critical Care Time Critical Care Time: No
--- NOTE | 2024-01-20 12:32 | CT_ITS ---
FINAL REPORT TECHNIQUE: IV contrast enhanced exam of the abdomen and pelvis was obtained. Coronal and sagittal reconstructions were obtained and reviewed. This study was performed with techniques to keep radiation doses as low as reasonably achievable, (ALARA). Individualized dose reduction techniques using automated exposure control or adjustment of mA and/or kV according to the patient's size were employed. CLINICAL HISTORY: abd pain, nausea, unintentional weight loss COMPARISON: None FINDINGS: Abdomen: No acute density is seen within the lung bases. The gallbladder is unremarkable. Solid abdominal organs are unremarkable. No bowel obstruction is present. There is no free air. No fluid collection is seen. There is no adenopathy. Pelvis: The appendix is normal. Mild fecal impaction is noted. No bowel wall thickening is present. There is no free fluid. No pelvic mass is seen. IMPRESSION: Mild fecal impaction. Reviewed, Interpreted and Dictated by Clark Azar MD Transcribed by Anne Clifford Authenticated and [facility]
--- NOTE | 2024-01-20 12:33 | CT_ITS ---
FINAL REPORT TECHNIQUE: Axial CT with contrast with 3-D MIP reconstruction obtained and reviewed. This study was performed with techniques to keep radiation doses as low as reasonably achievable, (ALARA). Individualized dose reduction techniques using automated exposure control or adjustment of mA and/or kV according to the patient's size were employed. CLINICAL HISTORY: progressive numb/tingling, PO intolerance, wt loss COMPARISON: None FINDINGS: Pulmonary vessels enhance in normal fashion without evidence of embolism. Thoracic aorta shows no dissection or aneurysm. No pulmonary mass or infiltrate is present. There is no significant pleural effusion. There is no significant pericardial effusion. No mediastinal or hilar adenopathy is present. IMPRESSION: No evidence of pulmonary embolism. No acute findings. Reviewed, Interpreted and Dictated by Clark Azar MD Transcribed by Anne Clifford Authenticated and [facility]
--- NOTE | 2024-01-20 12:33 | CT_ITS ---
FINAL REPORT TECHNIQUE: Multiple axial CT sections were performed from the foramen magnum to the vertex. Coronal reformatted images were also obtained. Precontrast and postcontrast injection images were obtained. This study was performed with technique to keep radiation doses as low as reasonably achievable, (ALARA). Individualized dose reduction techniques using automated exposure control or adjustment of mA and/or kV according to the patient size were employed. CLINICAL HISTORY: progressive numb/tingling, PO intolerance, wt loss COMPARISON: 02/21/2022 FINDINGS: The ventricles are normal in size. There is no evidence of hemorrhage. No masses are identified. No extra-axial fluid collection is seen. The sinuses are normal. No osseous abnormality is seen on the bone window images. Postcontrast images demonstrate no abnormal enhancement. IMPRESSION: Unremarkable CT of the head with and without contrast. Reviewed, Interpreted and Dictated by Clark Azar MD Transcribed by Anne Clifford Authenticated and [facility]
[2024-01-20 12:38] LABS: Chloride 91 mmol/L (98-107); Potassium 3.6 mmoL/L (3.5-5.1); Sodium 134 mmol/L (136-145)
[2024-01-20 12:40] LABS: Alanine Aminotransferase 44 U/L (12-78); Alkaline Phosphatase 67 U/L (38-126); Anion Gap 9.6 mEq/L (5-15); Aspartate Amino Transferase 47 U/L (17-59); Bilirubin,Total 1.4 mg/dl (0.2-1.3); Blood Urea Nitrogen 8 mg/dl (9-20); Carbon Dioxide 37 mmol/L (22.0-30.0); Creatinine Clearance Estimated 123 mL/min (50-200); Estimated Glomerular Filt Rate 149 ml/min (>60); GFR (African American) 181 ML/MIN (>60)
[2024-01-20 12:41] LABS: Albumin Level 4.4 g/dl (3.5-5.0); Albumin/Globulin Ratio 1.4 (1.1-1.8); Calcium 10.2 mg/dl (8.4-10.2); Globulin 3.2 g/dL (1.3-3.2); Glucose 123 mg/dl (74-100); Lipase 60 U/L (23-300); Magnesium 1.7 mg/dl (1.6-2.3); Phosphorous 3.7 mg/dl (2.5-4.5); Total Protein,Serum 7.6 g/dl (6.3-8.2)
[2024-01-20 12:49] LABS: Basophils # 0.1 K/mm3 (0-0.2); Basophils % 0.6 % (0.1-2.0); Eosinophils % 0.5 % (0.1-12.0); Lymphocytes # 1.9 K/mm3 (0.7-4.5); Lymphocytes % 20.8 % (10-50); Mean Corpuscular HGB Conc 33.5 g/dL (31.8-35.4); Mean Corpuscular Hemoglobin 36.9 pg (27.0-31.2); Mean Corpuscular Volume 110.4 fl (80-94); Mean Platelet Volume 8.2 fl (7.4-10.4); Monocytes # 0.6 K/mm3 (0.1-1.0); Monocytes % 6.2 % (1.7-9.3); Neutrophils # 6.6 K/mm3 (1.8-7.8); Neutrophils % 71.9 % (37.0-80.0); Platelet Count 277 K/mm3 (142-424); Red Blood Count 5.57 M/mm3 (4.60-6.20); Red Cell Distribution Width 16.7 % (11.5-17.5); White Blood Count 9.2 K/mm3 (4.8-10.8)
[2024-01-20 12:54] LABS: Activated Partial Thrombo Time 27.7 seconds (22.8-30.6); INR 1.01 (0.9-1.1); Prothrombin Time 11.3 seconds (10.1-12.5)
[2024-01-20 12:57] LABS: T4 (Thyroxine) 15.2 ug/dl (5.53-11.0)
[2024-01-20 13:06] LABS: Hemoglobin 20.5 g/dL (14.1-18.0)
[2024-01-20 13:07] LABS: Hematocrit 61.5 % (42.0-52.0)
[2024-01-20] MEDS: ACETAMINOPHEN 500MG TAB 1000 MG PO (13:10)
[2024-01-20] MEDS: PANTOPRAZOLE 40MG TABLET 40 MG PO (13:10)
[2024-01-20] MEDS: LACTATED RINGERS 1000ML 1,000 ML 999 ML IV (13:11)
[2024-01-20] MEDS: KETOROLAC 30MG/ML VIAL 15 MG IV (13:11)
[2024-01-20] MEDS: SODIUM CHLORIDE 0.9% 10ML SYR (RAD ONLY) 10 ML IV (13:24)
[2024-01-20] MEDS: IOPAMIDOL-370 (76%);100ML BOTTLE 75 ML IV (13:24)
[2024-01-20] MEDS: IOPAMIDOL-300 (61%) 100ML VIAL 100 ML IV (13:24)
[2024-01-20 13:37] LABS: Vitamin B12 522 pg/mL (239-931)
[2024-01-20 13:43] LABS: Thyroid Stimulating Hormone 1.24 uIU/mL (0.465-4.68)
[2024-01-20 14:18] LABS: Vitamin B12 479 pg/mL (239-931)
[2024-01-20 14:24] LABS: Folate 4.17 ng/mL
[2024-01-20 15:18] LABS: Microscopic, Urine URINE MICROSCOPIC (MICROSCOPIC)
[2024-01-20 15:22] LABS: Appearance,Urine CLEAR (Clear); Blood, Urine Negative (Negative); Color,Urine YELLOW (Yellow); Glucose,Urine (UA) Negative (Negative); Ketones,Urine TRACE (Negative); Leukocyte Esterase,Urine Negative (Negative); Nitrate,Urine Negative (Negative); PH,Urine 7.5 (5.0-8.5); Protein,Urine Negative (Negative); Specific Gravity, Urine <= 1.005 (1.005-1.030)
[2024-01-20 15:32] LABS: Bilirubin,Urine 1+ (Negative)
--- NOTE | 2024-01-20 15:36 | PC.NURSE ---
pt tolerated PO challenge well; no other needs at this time
--- NOTE | 2024-01-20 15:53 | PC.NURSE ---
DR OLGIUN AT BEDSIDE
[2024-01-20 15:55] LABS: Amorphous Sediment,Urine Trace /lpf; RBC,Urine Occasional #/hpf (0-3); Squamous Epithelial Cell,Urine Occasional #/hpf (0-5)
[2024-01-20 16:15] LABS: Reflex Lactic Add Lactic Reflex
[2024-01-21 10:06] LABS: HBsAg Screen Negative (Negative); HCV Ab Non Reactive (Non Reactive); Hep A Ab, IGM Negative (Negative); Hep B Core Ab, IgM Negative (Negative)
== END 2024-01-20 16:09 | disposition home or self-care (01) ==
PROVIDERS: Emergency Medicine; Emergency Provider Emergency Medicine
DX: D45 Polycythemia vera; D58.2 Other hemoglobinopathies; G62.9 Polyneuropathy, unspecified; E87.1 Hypo-osmolality and hyponatremia; R00.0 Tachycardia, unspecified; R79.89 Other specified abnormal findings of blood chemistry; R63.0 Anorexia; R63.4 Abnormal weight loss; F10.11 Alcohol abuse, in remission; Z68.1 Body mass index [BMI] 19.9 or less, adult
CPT/HCPCS: 70470; 71260; 74177; 80053; 80074; 81001; 82607; 82746; 82803; 83690; 83735; 84100; 84425; 84436; 84443; 85025; 85610; 85730; 93005; 96361; 96374; 99285; J1885; J7120; Q9967

== ENCOUNTER 2024-01-30 16:33 | Outpatient (CLI) | payer OTHER, SELFPAY | END 2024-01-30 23:59 | disposition home or self-care (01) | LOC: RAD 16:37 | PROVIDERS: PCP Family Medicine; Visit Provider Specialist | DX: R20.0 Anesthesia of skin (principal) ==

== ENCOUNTER 2024-01-31 12:50 | Outpatient (CLI) | payer OTHER, SELFPAY ==
[2024-01-31 13:29] VITALS: BMI 17.3
== END 2024-01-31 23:59 | disposition home or self-care (01) ==
LOC: DIETICIAN 12:50
PROVIDERS: PCP Family Medicine; Visit Provider Specialist
DX: R63.0 Anorexia (principal); Z68.1 Body mass index [BMI] 19.9 or less, adult
CPT/HCPCS: 97802

== ENCOUNTER 2024-02-14 12:03 | Outpatient (CLI) | payer OTHER, SELFPAY ==
[2024-02-14 18:31] LABS: Basophils # 0.1 K/mm3 (0-0.2); Basophils % 0.8 % (0.1-2.0); Eosinophils # 0.4 K/mm3 (0.0-0.4); Eosinophils % 2.8 % (0.1-12.0); Hematocrit 47.9 % (42.0-52.0); Lymphocytes # 2.9 K/mm3 (0.7-4.5); Lymphocytes % 21.9 % (10-50); Mean Corpuscular HGB Conc 38.6 g/dL (31.8-35.4); Mean Corpuscular Volume 107.8 fl (80-94); Mean Platelet Volume 11.3 fl (7.4-10.4); Monocytes # 0.7 K/mm3 (0.1-1.0); Monocytes % 5.2 % (1.7-9.3); Neutrophils # 9.1 K/mm3 (1.8-7.8); Neutrophils % 69.4 % (37.0-80.0); Platelet Count 217 K/mm3 (142-424); Red Blood Count 4.44 M/mm3 (4.60-6.20); Red Cell Distribution Width 16.5 % (11.5-17.5); White Blood Count 13.2 K/mm3 (4.8-10.8)
[2024-02-14 18:33] LABS: Mean Corpuscular Hemoglobin 41.6 pg (27.0-31.2)
[2024-02-14 18:37] LABS: Chloride 105 mmol/L (98-107); Potassium 3.9 mmoL/L (3.5-5.1); Sodium 140 mmol/L (136-145)
[2024-02-14 18:40] LABS: Alanine Aminotransferase 32 U/L (12-78); Albumin Level 4.5 g/dl (3.5-5.0); Albumin/Globulin Ratio 1.6 (1.1-1.8); Alkaline Phosphatase 61 U/L (38-126); Anion Gap 13.9 mEq/L (5-15); Aspartate Amino Transferase 29 U/L (17-59); Bilirubin,Total 0.8 mg/dl (0.2-1.3); Blood Urea Nitrogen 19 mg/dl (9-20); Carbon Dioxide 25 mmol/L (22.0-30.0); Estimated Glomerular Filt Rate 148 ml/min (>60); GFR (African American) 180 ML/MIN (>60); Globulin 2.9 g/dL (1.3-3.2); Total Protein,Serum 7.4 g/dl (6.3-8.2)
[2024-02-14 18:41] LABS: Calcium 10.5 mg/dl (8.4-10.2); Glucose 105 mg/dl (74-100)
[2024-02-14 19:08] LABS: Hemoglobin 18.5 g/dL (14.1-18.0)
== END 2024-02-14 23:59 | disposition home or self-care (01) ==
LOC: LAB.DROPOF 02-15 12:03
PROVIDERS: PCP Family Medicine; Visit Provider Family Medicine
DX: R63.0 Anorexia (principal); D58.2 Other hemoglobinopathies; Z68.1 Body mass index [BMI] 19.9 or less, adult
CPT/HCPCS: 80053; 85025

== ENCOUNTER 2024-04-24 15:00 | Outpatient (RCR) | payer OTHER, SELFPAY ==
--- NOTE | 2024-03-01 11:47 | HMH.PTOPEV ---
PT Outpatient Evaluation Rehab PT Outpatient Evaluation Start: 03/01/24 09:04 Freq: Status: Active Protocol: Document 03/01/24 09:04 EDINSON (Rec: 03/01/24 11:47 EDINSON [id number]) E-signed By Latosha Rosado, PT Outpatient Therapy Subjective History Subjective History Pt is a 39 y/o male who reports general decline in function over the past 6 weeks . Pt reports history of neuropathy with recent worsening altering his gait/ balance, strength and endurance. Pt states I'm numb head to toe. Pt also reports generalized muscle pain due to malnutrition and dehydration. Pt reports he has not had an appetite and has lost 40lbs. Pt reports difficulty with daily ADLs such as dressing, housework and showering due to low energy levels and weakness. Pt states he now has to use a shower chair due to inability to stand long enought to shower. Pt reports he is only able to perform 20 minutes of activity before he needs to rest. Pt also reports altered balance requiring him to use alvarado/furniture while walking. Pt reports he has a walker but quit using it because it hurts his wrists. Pt states he has fallen 3-4 times this year. Pt reports 2 falls in the shower and 2 falls due to dizziness after turning while walking. Pt also reports worsening of balance when he tries to walk at night time in the dark. Pt also reports new onset of sharp R heel pain exacerbated by extending his knee and dorsifexing the ankle . Medical History: Macrocytosis without anemia, Generalized weakness, Depression, Neuropathy, Asthma 5x sit to stand: 19 Balanace: FT EO firm surface 30 , FT EC firm surface <20 with self corrected LOB, Tandem stance <10 with PT corrected lateral LOB New diagnosis of cancer in past 12 No months? Chief Complaint Pain,Stiff,Weakness Symptom Type Sharp,Dull Current Functional Limitations Lifting,Housework,Dressing, Standing,Squatting,Recreation Activity,Walking,Stairs, Balance Symptom Description Constant but Variable Level of pain today (0-10) 3 Pain scale - at its best (0-10) 3 Pain scale - at its worst (0-10) 5 Lumbopelvic Eval Manual Muscle Test Bilateral Knee Extension Strength Grade 4- Good- Knee Flexion Strength Grade 4- Good- Hip Flexion Strength Grade 4- Good- Hip Abduction Strength Grade 4- Good- Hip Adduction Strength Grade 4- Good- Hip Extension Strength Grade 4- Good- Ankle Dorsiflexion Strength Grade 5 Normal Balance Eval Subjective Hx of Complaint Comment generalized weakness and decreased strength/endurance Chief Complaint vertigo No Did you feel dizzy, unsteady or faint? Yes Activity at onset turning while walking, walking in the dark Current Functional Limitations Comment altered gait/balance & generalized weakness leading to difficulty with ADLs Hx of Falls Hx Falls Yes Number in last 6 months 4 Outpatient Therapy Assessment Impairments Problems/Impairmments Impaired Strength,Impaired Endurance,Impaired Gait Pattern,Impaired Walking, Impaired Standing,Impaired Lifting,Impaired Dressing, Impaired Shower/Bathing, Impaired Household Care, Impaired Stair Climbing, Impaired Stepping on Uneven Surface,Impaired Recreational Activities,Impaired Balance, Subjective C/O Pain,Impaired Self Care/Self Management Prognosis Rehab Potential Good Clinical Impression Consistent with Diagnosis Yes Short Term Goals Number of Weeks 3 Increase Endurance Yes: Perform NuStep/bike for 10' with RPE 5/10 or less Improve Ability to Dress Self Yes Improve Ability to Shower/Bathe Self Yes Improve Balance Yes: FT EC unstable surface 30 without LOB to decrease fall risk Improve Self Care/Self Management Yes Patient to be Ind w/ HEP Yes Correction Goals Number of Weeks 6 Increase Strength Yes: Improve BLE MMT to 4+/5 grossly to assist with function Increase Endurance Yes: Perform NuStep/bike for 15' with RPE 5/10 or less Improve Transfers Yes: 5x sit to stand 12 or less to decrease fall risk Improve Gait Pattern without Assistive Yes: proper gait mechanics Device with LRD to decrease fall risk Improve Balance Yes: Tandem stance 30 firm surface EO without LOB to decrease fall risk Patient to be Ind w/ Advanced HEP Yes Outpatient Therapy Plan of Care Treatment Plan May Include Therapeutic Exercise Including Home Yes Exercise Program Manual Therapy Techniques Yes Neuromuscular Re-education Yes Therapeutic Activities to Return to Yes Previous Functional/Work Level Gait Training Yes ADL/Self Care Education Yes Dry Needling Yes Thermal Modalities Yes Electrical Stimulation Yes Ultrasound/Phonophoresis Yes Iontophoresis Yes Orthotics/Bracing/Splinting Yes Vasopneumatic Compression Pump Yes Massage Yes Eval/Re-Eval Yes Frequency Times per week 2 Duration Number of Weeks 4-6 Addendums This patient is a candidate for social No or vocational rehab? Patient/Guardian verbally acknowledges Yes understanding of treatment program and consents to further treatment? Patient/Guardian verbally acknowledges Yes understanding of diagnosis, prognosis and goals for treatment? Eval Complexity PT Charges 76436 - Moderate Complexity Shoulder/Elbow Eval Shoulder Objective Measurements Elbow Objective Measurements PHYSICIAN CERTIFICATION: I certify the specified therapy services for Roosevelt Charlesgerald are required, authorized, and reviewed every 30 days.
--- NOTE | 2024-03-28 13:58 | HMH.RHREAS ---
Rehab Reassessment Rehab OP Re-assessment Start: 03/01/24 09:04 Freq: Status: Active Protocol: Document 03/28/24 13:02 THEODORERichie (Rec: 03/28/24 13:57 EDINSON [id number]) E-signed By Latosha Rosado PT Rehab Re-assessment Subjective Subjective Pt reports he feels 20% improved since starting PT. Pt reports he still has no appetite and is only sleeping 2-3 hours each night. Pt reports due to this he still has very low energy levels. Pt reports his balance is still off with continued tingling of B feet. Pt denies recent falls or required use on an AD . Pt reports he is able to stand slightly longer in the shower but still uses a shower chair when needed. Pt reports he has an appointment to see a GI specialist and to have a colonoscopy next week. Objective Objective Notes Endurance: 15' on NuStep UE/LE with RPE 3-4/10 BLE MMT: hip flex 4-/5, hip abd 4/5, hip add 4/5, hip ext 4-/5, knee flex 4/5, knee ext 4/5 Balance: FT EC on unstable surface 10 then self- corrected LOB Assessment Assessment Notes Pt has attended 5 PT sessions consisting of aerobic exercise , LE strengthening, balance/ proprioception training, and HEP with good tolerance. Pt demonstrated improved endurance with less rest breaks required during PT sessions and ability to perform aerobic exercise for 15 minutes with RPE only 3-4/ 10. Pt also demonstrated slight improvement in LE strength and continued balance deficits. Overall, the pt would continue to benefit from skilled PT to further improve endurane, strength and functional activity tolerance to improve overall QOL. Patient goals met ST/6 Goals Not Met balance, LTG Revised Goals n/a Plan Plan Continue initial POC Frequency of Therapy 2x/week Duration of therapy 4 more weeks Time and Billing Re-Eval Time 12 Re-Eval Billing Units 1 PHYSICIAN CERTIFICATION: I certify the specified therapy services for Roosevelt Herzog are required, authorized, and reviewed every 30 days.
--- NOTE | 2024-04-24 16:08 | HMH.RHREAS ---
Rehab Reassessment Rehab OP Re-assessment Start: 03/01/24 09:04 Freq: Status: Active Protocol: Document 04/24/24 15:56 EDINSON (Rec: 04/24/24 16:08 EDINSON [id number]) E-signed By Latosha Rosado PT Rehab Re-assessment Subjective Subjective Pt reports he feels like his endurance and balance are improving with physical therapy. Pt reports he still feels weak due to continued lack of appetite. Pt reports he feels that his energy levels will remain low until his appetite increases which he feels is limiting his progress with strengthening. Pt reports he has felt hungry the past few times after leaving therapy which is new for him. Pt reports he started taking new medication to increase his appetite 2 days ago. Pt reports he returns to his MD on 05/14 for his next follow-up appointment. Pt reports he also is scheduled to see a neurologist next week for neuropathy. Objective Objective Notes Endurance: 15' on NuStep UE/LE with RPE 3-4/10 BLE MMT: hip flex 4/5, hip abd 4/5, hip add 4/5, hip ext 4-/ 5, knee flex 4+/5, knee ext 4+ /5 Balance: FT EC on unstable surface 37 then self- corrected LOB, tandem stance firm surface 41 then self corrected LOB Assessment Assessment Notes Pt has attended 9 PT visits consisting of aerobic exercise , LE strengthening, balance/ proprioception training, and HEP with good tolerance. Pt demonstrated improved balance/ proprioception and slight improvement in LE strength this date. Overall, the pt would continue to benefit from skilled PT to further improve endurance and strength to assist with return to PLOF. Patient goals met ST/6 LT/6 Plan Plan Continue initial POC Frequency of Therapy 2x/week Duration of therapy 4 more weeks Time and Billing Re-Eval Time 10 Re-Eval Billing Units 1 PHYSICIAN CERTIFICATION: I certify the specified therapy services for Roosevelt Herzog are required, authorized, and reviewed every 30 days.
== END 2024-04-24 15:05 | disposition home or self-care (01) ==
LOC: PT 15:00
PROVIDERS: Visit Provider Family Medicine
DX: R53.1 Weakness (principal)
CPT/HCPCS: 97110; 97112; 97163; 97164; 97530

== ENCOUNTER 2024-12-10 12:30 | Outpatient (POV) | payer OTHER, SELFPAY ==
[2024-12-10 13:19] VITALS: BP 107/77; PULSE 90; RESP 16; O2SAT 97; BMI 19.2
--- NOTE | 2024-12-10 13:36 | A.OFFVIS_ITS ---
HPI Data of Consult Patient: new to practice Consult date: 12/10/24 Requesting Physician: Latosha Maria APRN Primary Care Provider: Rahul Witt MD Reason for consult: Neuropathy History of present illness: Mr. Herzog is a 39 year old male who presents today as a new patient. He does rate his pain today a 4 or 5 out of 10. Patient states all of his issues are related to neuropathy in both his upper arms to his hands as well as his lower legs and feet. Patient does state that this has been going on for at least 2 years and has progressively worsened. Patient does state that the upper extremity issues have been over the last several months. He states that he is learning how to deal with the neuropathy and numbness and tingling in his legs overall however the hands have been a different story. 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 He states he has trouble buttoning his close or even writing his name. Patient states that he is completely numb down his arms to his hands. He does state that the pain is worse with cold weather and that he has not found anything that makes it better. He does state the pain is interfering with his ability to perform activities of daily living such as cooking and cleaning. Patient states that he is on gabapentin from an outside provider however he feels like it does seem to cause brain fog so there have been times when he is stopped taking this for a few days. Patient does state that he has been to see Dr. Potts for an EMG of his lower extremities and those were within normal limits. Patient is trying to currently go have an EMG testing on his upper extremities with this office however has not yet gotten appointment. He was diagnosed with alcohol induced neuropathy. He has continued oral medication, heat and ice, topicals such as compounded cream from Dr. Forbes's office. Patient has tried physical therapy in 2023 with 6-8 visits however was told by the providers that his therapy was being discontinued due to poor strength. Patient had been on a walker due to the worsening symptoms at that time. Patient has been able to increase activity now where he does not rely on the ambulatory devices and has picked up about 20 pounds of weight since last year. Patient is interested in any help we may be able to provide as he feels like he has very little quality of life. Patient denies any imaging of his low back or neck. Patient does state that he did see a chiropractor about 2 years ago however has not been back since. His Afshin has been reviewed and is appropriate. Pain at rest (0-10 scale): 5 Has patient had previous pain injection?: No Conservative treatment options previously tried: Home exercise plan (Longer than 12 weeks), Physical Therapy (2023 6-8 sessions) and Chiropractor (Previous) cc:: CC: Latosha Maria APRN [facility] Disclaimer: The information contained in this section may have been updated after the patient was seen, as this information can be updated by other users. Medical History (Updated 12/10/24 @ 13:42 by Latosha Maria APRN) Alcoholic peripheral neuropathy Chronic alcohol abuse Peripheral neuropathy Alcohol abuse Marijuana use Macrocytosis without anemia Generalized weakness Depression Neuropathy Surgical History [place] teeth extracted Family History Other Cancer Heart attack Skin cancer Social History Smoking Status: Current every day smoker tobacco type: cigarettes packs per day: 1 alcohol intake: current alcohol intake frequency: holidays/special occasions only substance use type: marijuana current occupational status: unemployed Travel in the last 8 weeks?: None household members: none housing: apartment marital status: number of children: 2 Review of Systems Review of Systems Review of systems:: pertinent systems reviewed and negative unless documented below Review of systems (narrative): Review of Systems: General: No recent weight changes, no fever, no sleep disturbances Respiratory: No cough, no shortness of air, no recurring pulmonary infections Cardiovascular/peripheral vascular: No chest pain, no palpitations, no edema, no shortness of breath Gastrointestinal: No new onset incontinence, normal bowel movements reported Genitourinary: No new onset incontinence Musculoskeletal: Upper arm numbness tingling, pain numbness tingling, bilateral feet numbness tingling Psychiatric: [Normal mood/affect] Neurological: [Denies weakness in extremities], [denies balance issues] Meds Home Medications and Allergies Home Medications ?Medication ?Instructions ?Recorded ?Confirmed ?Type albuterol sulfate 90 mcg/actuation 2 inh inhalation Q4-6H #8.5 grams 08/31/24 12/10/24 Rx aerosol inhaler folic acid 1 mg tablet 1 mg PO DAILY #60 tabs 08/31/24 12/10/24 Rx gabapentin 300 mg capsule 300 mg PO TID #90 caps 08/31/24 12/10/24 Rx multivitamin 1 tab PO DAILY #30 tabs 08/31/24 12/10/24 Rx thiamine HCl (vitamin B1) 250 mg 250 mg PO DAILY Alcohol related 08/31/24 12/10/24 Rx tablet neuropathy #90 tabs New Prescriptions to Start Prescriptions: Allergies Allergy/AdvReac Type Severity Reaction Status Date / Time No Known Allergies Allergy Verified 12/06/24 11:31 Objective Vital signs: Pulse Resp BP Pulse Ox O2 Del Method 90 16 107/77 L 97 Room Air 12/10/24 13:19 12/10/24 13:19 12/10/24 13:19 12/10/24 13:19 12/10/24 13:19 Narrative: Physical Exam: General: Alert and oriented x3, no acute distress, pleasant and cooperative Lungs: Respirations even and unlabored, symmetrical chest expansion Eyes: PERRL Musculoskeletal: Flexion and extension of cervical [spine] somewhat guarded secondary to pain, [antalgic gait noted] positive Spurling's test Neurological: Speech clear, no gross sensory deficit Assessment and Plan *Assessment and plan (1) Cervical radiculopathy: Status: Acute Category: Medical Code(s): M54.12 - Radiculopathy, cervical region (2) Peripheral neuropathy: Status: Acute Category: Medical Code(s): G62.9 - Polyneuropathy, unspecified (3) Chronic pain syndrome: Status: Acute Category: Medical Code(s): G89.4 - Chronic pain syndrome Plan Patient has been dealing with chronic neuropathy affecting both his lower extremities and upper extremities for longer than 6 months. Patient is experiencing worsening pain with radiating tingling and burning sensations into their bilateral upper extremities. Patient did have limited range of motion of his cervical spine with a positive Spurling's test. I did discuss with the patient that I do believe they would benefit from a cervical epidural steroid injection. Risk and benefits were discussed with patient and they would like to proceed forward with this plan of care. Patient has tried and failed conservative therapy including oral medications, heat and ice, topicals, physical therapy and continued at home stretching exercise for longer than 12 weeks that was physician guided. Patient has not had any injections in the past. I will order x-ray imaging of his cervical and lumbar spine and proceed forward with a cervical MRI without contrast. Patient is having more debilitating symptoms related to his upper extremity limited use. I did also review with the patient I do believe in future he would benefit for a spinal cord stimulator trial. Risk and benefits were discussed with the patient and he would like to proceed forward with this plan of care. We will go ahead and order a psychological evaluation and if he is deemed an appropriate candidate we will proceed forward with a trial at a later date. We will also plan on sending him for evaluation by neurosurgery once we have advanced imaging. Patient agrees with this plan of care. Patient will be scheduled for a BERTHA C6 or C7 under fluoroscopy. Patient denies any blood thinners. Patient has been instructed to contact the clinic with any concerns before the next appointment. Dr. Hill has reviewed this note and agrees with this plan of care. This note was dictated using voice recognition software and make contain errors or omissions. All injections are used with Lidocaine, Bupivacaine and dexamethasone unless otherwise stated as a diagnostic in which it has no steroid. Occasionally urine drug screen is needed to verify patient's compliance with our office pain contract. This is ordered based off specific treatments related to chronic pain with the potential to abuse certain medications.
--- NOTE | 2024-12-10 13:39 | XR_ITS ---
FINAL REPORT TECHNIQUE: Cervical spine 3 views CLINICAL HISTORY: Cervical radiculopathy COMPARISON: None FINDINGS: CERVICAL SPINE: AP, lateral and odontoid views of the cervical spine were obtained. There is no prior exam for comparison. There is no acute fracture or malalignment. Vertebral body height is preserved. The precervical soft tissues are normal. IMPRESSION: No acute process. Reviewed, Interpreted and Dictated by Tomre Rodriguez MD Transcribed by Tiffanie Vila Authenticated and . [facility]
--- NOTE | 2024-12-10 13:39 | XR_ITS ---
FINAL REPORT TECHNIQUE: Lumbar spine 3 views CLINICAL HISTORY: Peripheral neuropathy COMPARISON: None FINDINGS: LUMBAR SPINE: AP and lateral views of the lumbar spine were obtained. There is no prior exam for comparison. There is no acute fracture or malalignment. Vertebral body height is preserved. Disc space height is preserved. No acute paraspinal abnormality. IMPRESSION: No acute process. Reviewed, Interpreted and Dictated by Tomer Rodriguez MD Transcribed by Tiffanie Vila Authenticated and . [facility]
[2024-12-10 15:11] LABS: Basophils # 0.1 K/mm3 (0-0.2); Basophils % 0.6 % (0.1-2.0); Eosinophils # 0.4 Kmm3 (0.0-0.4); Hematocrit 44.7 % (42.0-52.0); Hemoglobin 15.2 g/dL (14.1-18.0); Immature Granulocytes # 0.04 10^3uL; Immature Granulocytes % 0.3 %; Lymphocytes # 2.6 K/mm3 (0.7-4.5); Lymphocytes % 21.2 % (10-50); Mean Corpuscular Hemoglobin 32.5 pg (27.0-31.2); Mean Corpuscular Volume 95.7 fl (80-94); Mean Platelet Volume 10.8 fl (7.4-10.4); Monocytes # 0.6 K/mm3 (0.1-1.0); Monocytes % 5.1 % (1.7-9.3); Neutrophils # 8.5 K/mm3 (1.8-7.8); Neutrophils % 69.8 % (37.0-80.0); Nucleated Red Blood Cells # 0 10^3/uL; Nucleated Red Blood Cells % 0 %; Platelet Count 309 K/mm3 (142-424); Red Blood Count 4.67 M/mm3 (4.60-6.20); Red Cell Distribution Width 13.1 % (11.5-17.5); White Blood Count 12.2 K/mm3 (4.8-10.8)
[2024-12-10 15:31] LABS: Alanine Aminotransferase 15 U/L (12-78); Albumin Level 4.7 g/dl (3.5-5.0); Alkaline Phosphatase 110 U/L (38-126); Anion Gap 10.3 mEq/L (5-15); Aspartate Amino Transferase 21 U/L (17-59); Bilirubin,Total 0.7 mg/dl (0.2-1.3); Blood Urea Nitrogen 7 mg/dl (9-20); Calcium 9.9 mg/dl (8.4-10.2); Carbon Dioxide 28 mmol/L (22.0-30.0); Chloride 105 mmol/L (98-107); Creatinine Clearance Estimated 101 mL/min (50-200); Estimated Glomerular Filt Rate 107 ml/min (>60); GFR (African American) 129 ML/MIN (>60); Globulin 2.3 g/dL (1.3-3.2); Glucose 72 mg/dl (74-100); Potassium 4.3 mmoL/L (3.5-5.1); Sodium 139 mmol/L (136-145)
[2024-12-10 15:39] LABS: Hemoglobin A1C 4.8 % (4.0-6.0)
[2024-12-10 16:01] LABS: Thyroid Stimulating Hormone 0.57 uIU/mL (0.465-4.68)
[2024-12-10 16:16] LABS: Free T4 (Free Thyroxine) 1.06 ng/dl (0.78-2.19)
[2024-12-10 16:20] LABS: Vitamin B12 260 pg/mL (239-931)
[2024-12-10 17:10] LABS: Folate 5.85 ng/mL
== END 2024-12-10 23:59 | disposition home or self-care (01) ==
PROVIDERS: PCP Family Medicine; Visit Provider Nurse Practitioner Family
DX: M54.12 Radiculopathy, cervical region (principal); G62.9 Polyneuropathy, unspecified; G89.4 Chronic pain syndrome; Z73.89 Other problems related to life management difficulty; F17.210 Nicotine dependence, cigarettes, uncomplicated
CPT/HCPCS: 36415; 72040; 72100; 80053; 82607; 82746; 83036; 84439; 84443; 85025; 99202; G0463

== ENCOUNTER 2025-01-28 13:42 | Outpatient (CLI) | payer OTHER, SELFPAY ==
--- NOTE | 2025-01-28 13:45 | MR_ITS ---
FINAL REPORT CLINICAL HISTORY: NECK PAIN bilateral t/n/b in hands FINDINGS: Multiplanar MR imaging of the cervical spine was performed without contrast. On the sagittal T2-weighted images, decreased signal seen throughout. There is no evidence of fracture. The vertebral alignment is normal. There is prominent intramedullary signal abnormality in the posterior cord at the C2 level measuring 12 mm in craniocaudad dimension. No significant canal stenosis is identified. The cervicomedullary junction is normal. C2-3: There is no significant canal stenosis or neural foraminal narrowing. C3-4: There is no significant canal stenosis or neural foraminal narrowing. C4-5: Mild diffuse disc bulge with endplate hypertrophy and mild bilateral neuroforaminal narrowing. C5-6: Mild diffuse disc bulge with endplate hypertrophy and mild bilateral neuroforaminal narrowing. C6-7: Mild diffuse disc bulge with endplate hypertrophy and mild bilateral neuroforaminal narrowing. C7-T1: There is no significant canal stenosis or neural foraminal narrowing. IMPRESSION: Intramedullary signal abnormality at the C2 level which may be related to localized demyelination, intramedullary tumor considered less likely. Recommend pre and postcontrast fat-saturated images for further evaluation. Mild diffuse disc bulges from C4-5 through C6-7 with neuroforaminal narrowing as above. Reviewed, Interpreted and Dictated by Tomer Rodriguez MD Transcribed by Gina Aguilera Authenticated and [facility]
--- OUTSIDE RECORDS SUMMARY | 2025-01-28 13:47 | XMS_ITS | Data Portability ---
Author Organization [place] - [facility] [place] Address [address] [place] [id number] Assessment Encounter Date Assessment Date Assessment LastModified by Organization Details LastModified Time 03/07/2024 03/07/2024 Mr. Herzog is a 39 year old male here for 1) Unintentional Weight loss 2) Early satiety - Approximately 40 lb weight loss in the last year - Records from [facility] reviewed. CT head, chest and abdomen completed. No obvious masses or identifiable cause of symptoms. CT A/P did show mild stool impaction. - [facility]; showed polycythemia vera, elevated T4 but low TSH, and slightly elevated bilirubin, normal LFTs - Will attempt to get records from [facility] as well - Schedule EGD and colonoscopy - At follow up consider rechecking Alc, TSH, HIV, PETH - Can consider mirtazapine at follow up if symptoms continue 2)Alcohol Misuse - Patient reports heavy alcohol use until 7-8 weeks ago - Patient was in hurry. Stated labs were recently drawn at the hospital. - Next visit will order CMP, Hepatitis, GGT, AFP, Ultra sound of his liver - Encouraged continued alcohol cessation 3)Constipation 4)Abdominal bloating -Add fiber supplement such as Metamucil or Citrucel to bulk stool and help alleviate straining -Add Miralax 1 capful in 8oz of liquid once daily to help facilitate adequate bowel movements -Ingest 20 to 30 g of insoluble fiber per day -Drink 6-8 glasses of water daily to ensure adequate hydration -Refrain from straining or lingering (eg reading) on the toilet. -Practice regular physical exercise -Limit intake of fatty foods and alcohol, which can exacerbate constipation Not available 03/12/2024 22:21:25 04/16/2024 04/16/2024 Mr. Herzog is a 39 year old male here for 1)Unintentional Weight loss 2)Early satiety 3)Cachexia 4)BMI < 18 - Approximately 40 lb weight loss in the last year - Records from [facility] and [facility] reviewed. CT head, chest and abdomen completed. No obvious masses or identifiable cause of symptoms. CT A/P did show mild stool impaction. -[facility] Labs personally reviewed; showed polycythemia vera, elevated T4 but notmalnTSH, and slightly elevated bilirubin, normal LFTs - EGD Completed 04/13/2024 showed mild gastritis, intestinal metaplasia at the GE junction as well as increased eosinophils greater than 19 per high-power field. No biopsies were taken of mid or distal esophagus. - mirtazapine started by Dr. Rahul Witt since previous visit. Patient reports some improvement in appetite initially but no improvement in weight gain. BMI today is 15.9. He is down 3 lb from last visit. - there does not appear to be a malignancy, he does not appear to have hypothyroid or hepatitis. I would like to obtain lab work to check for HIV, PETH, diabetes, CBC and CMP as well as UDS. Mr. Herzog reports multiple tests and labs without identified cause. He does not want anymore labs. - Start megace today 40 mg 4 times daily. We will follow-up in 8 weeks and increased dose if needed. In the meantime I have recommended patient follow-up with his PCP for further workup. 5)Wiseman's esophagus - Continue Protonix 40 mg daily (refill) - EGD 04/13/2024 show intestinal metaplasia at the GE junction as well as increased eosinophils up to 19, without dysplasia. Reactive gastropathy in the stomach. 17 mm stricture and a 2 cm sliding hiatal hernia -Continue Protonix 40mg daily. *-EGD screening 3 years after initial diagnosis, next EGD 5 years after that * -Take PPI 30 minutes before eating for it to be effective - Elevation of head of the bed - Remain upright 2 to 3 hours after eating - Dietary modification: Avoidance of triggers such as fatty foods, caffeine, chocolate, spicy foods, food with high fat content, carbonated beverages, peppermint, acidic and citrus items - Avoidance of tight fitting garments - Promotion of salivation through oral lozenges/chewing gum to neutralize refluxed acid - Avoidance of tobacco and alcohol 6)Constipation 7)Abdominal bloating - reports improvement after colonoscopy - Takes 3 stool softener's daily when he feels constipated and states they work. - Linzess samples given at last visit. Reports he has not tried them. -Add fiber supplement such as Metamucil or Citrucel to bulk stool and help alleviate straining -Add Miralax 1 capful in 8oz of liquid once daily to help facilitate adequate bowel movements -Ingest 20 to 30 g of insoluble fiber per day -Drink 6-8 glasses of water daily to ensure adequate hydration -Refrain from straining or lingering (eg reading) on the toilet. -Practice regular physical exercise -Limit intake of fatty foods and alcohol, which can exacerbate constipation 8)Alcohol Misuse - Patient reports heavy alcohol, 1 pint liquor per day for >10 years - Last drink in December 2023 ( 4 months) - On thiamine and Folate - Encouraged continued alcohol cessation 9)Nicotine Dependence -pt currently smoking 1 pk day -Encouraged patient to stop smoking to improve appetite and reduce the risk of developing cancer or emphysema. He is not interested in stopping smoking at this time. 10) colorectal cancer screening - colonoscopy 04/13/2024 with 1 tubular adenoma, repeat 5 years (03/2029) Not available 04/16/2024 21:37:45 Plan of Treatment Reminders Order Date Submit Date Provider Last Modified By Organization Details Last Modified Time Details Appointments None recorded. Lab None recorded. Referral None recorded. Procedures None recorded. Surgeries None recorded. Imaging None recorded. Medication Orders megestrol 40 mg tablet 2023 024 [facility] #[id number], [address], [id number], 4 15:19:22 pantoprazol e 40 mg tablet,adis yed release 2023 024 [facility] #[id number], [address], [id number], 4 15:19:41 Patient TargetsNo targets recorded. Patient InstructionsNo instructions recorded. Reason for Referral None Reported. Results Created Date Observation Date Name Description Value Unit Range Abnormal Flag Note LastModifiedBy Organization Detail LastModifiedTime Result Notes None recorded. Medical Equipment None Reported. Allergies No known drug allergies Medications Name Sig Start Date Stop Date Status Note LastModified by Organization Details LastModified Time pantoprazol e 40 mg tablet,adis yed release Take 1 tablet every day by oral route for 90 days. 2023 active Not Available Not Available Not Avai lable mirtazapine 30 mg tablet TAKE 1 TABLET BY MOUTH EVERY NIGHT AT BEDTIME active Not Available Not Available No t Available nicotine 21 mg/[address] patch [address] 1 PATCH ONTO THE SKIN ONCE DAILY FOR 14 DAYS 03/07 completed Not Available Not Available Not Available megestrol 40 mg tablet TAKE 1 TABLET BY MOUTH FOUR TIMES DAILY active Not Available Not Available No t Available gabapentin 300 mg capsule TAKE 1 CAPSULE BY MOUTH THREE TIMES DAILY active Not Available Not Available No t Available folic acid 1 mg tablet TAKE 1 TABLET BY MOUTH ONCE DAILY active Not Available Not Available No t Available gabapentin 100 mg capsule TAKE 2 CAPSULES BY MOUTH DAILY active Not Available Not Available No t Available Vitamin B-1 100 mg tablet TAKE 2 AND 1/2 TABLETS BY MOUTH ONCE DAILY FOR ALCOHOL RELATED NEUROPATH Y MAX DOSE IS 250 MG active Not Available Not Available No t Available Ventolin HFA 90 mcg/actuati on aerosol inhaler INHALE 2 PUFFS BY MOUTH EVERY 6 HOURS NEEDED active Not Available Not Available No t Available GaviLyte-G 236 gram-22.74 gram-6.74 gram-5.86 gram oral solution MIX AND DRINK DIRECTED FOR COLONOSCO PY PREP active Not Available Not Available No t Available Suprep Bowel Prep Kit 17.5 gram-3.13 gram-1.6 gram oral solution Take 6 ounces twice a day by oral route as directed for 1 day, for colonosco py prep. 2023 active Not Available Not Available Not Avai lable Daily-Chloe (with folic acid) 400 mcg tablet TAKE 1 TABLET BY MOUTH ONCE DAILY active Not Available Not Available No t Available Vitals Date Recorded Body weight Body mass index (BMI) Body height Body temperature Oxygen saturation Oxygen saturation in Arterial blood by Pulse oximetry Heart rate Heart rate Systolic And Diastolic Provider Name and Address Organization Details Last Updated DateTime 4 14546.9 9 g 16.2 kg/m2 177.8 cm 98.1 [degF] 91 % 91 % 101 /min 91 /min 91/60 mm[Hg] Toya [facility] & [place] 14:37:12 Date Recorded Body height Body mass index (BMI) Body weight Body temperature Oxygen saturation Oxygen saturation in Arterial blood by Pulse oximetry Heart rate Heart rate Systolic And Diastolic Provider Name and Address Organization Details Last Updated DateTime 4 177.8 cm 15.9 kg/m2 78131.9 6 g 97.2 [degF] 95 % 95 % 110 /min 112 /min 94/64 mm[Hg] Toya [facility] & [place] 14:09:33 Social History Question Answer Notes LastModified by Organizat ion Details LastModified Time Tobacco Smoking Status Current Every Day Smoker Toya [facility] & [place] 03/07/2024 14:39:10 What Is Your Level Of Caffeine Consumption? Moderate Information not available 03/07/2024 Which Illicit Or Recreational Drugs Have You Used? Marijuana [email or web address] Information not available 03/07/2024 How Much Tobacco Do You Smoke? 1 PPD [email or web address] Information not available 03/07/2024 Have You Used IV Drugs? No [email or web address] Information not available 03/07/2024 Sex: Unknown Functional Status Question Answer Note LastModified by Organizat ion Details LastModified Time Do you use any illicit or recreational drugs? Yes [email or web address] Information not available 03/07/2024 What is your level of alcohol consumption? None [email or web address] Information not available 03/07/2024 Mental Status None recorded. Family History Nothing Reported. Medical History No medical history recorded. Past Encounters Encounter ID Performer Location Encounter Start Date Encounter Closed Date Diagnosis/Indication Diagnosis SNOMED-CT Code Diagnosis ICD10 Code Diagnosis Note [id number] TOM LEVIN NP [facility] [address] [address] 03/07/2024 13:42:18 03/07/2024 15:36:36 Unintentional weight loss 290061336 R63.4 Alcohol dependence 34897 003 F10.20 Abdominal bloating 32968 9008 R14.0 Constipation 57068889 K5 9.00 Early satiety 260428981 R68.81 [id number] TOM LEVIN NP [facility] [address] [place] [address] 04/16/2024 13:50:29 04/16/2024 16:13:16 Unintentional weight loss 188563322 R63.4 Alcohol dependence 43879 003 F10.20 Abdominal bloating 56674 9008 R14.0 Constipation 69528098 K5 9.00 Early satiety 836471043 R68.81 Wiseman's esophagus 3029 38633 K22.70 Nicotine dependence 5629 4008 F17.200 Body mass index less than 20 585956398 Z68.1 Cachexia 305286322 R64 Health Concerns Section Related Observation LastModified by Organization Detai ls LastModified Time None Recorded Concern Status LastModified by Organization Details LastModified Time None Recorded Advance Directives Directive None Recorded Payers Insurance Date Sequence Insurance Name Policy Number Policy Gatica Covered Member ID Gatica Member ID Guarantor Name 04/14/2024 1 [facility] (MEDICAID HMO) Mino Albert [id number] Roosevelt Herzog Notes Date Note Type Note Provider Name and Address Organization Details Recorded Time 03/07/2024 text/html CURRENT( 4 Radha Levin): is a 39 year old who was referred to our clinic due to Unintentional weight loss. Patient reports loss of appetite, nausea, fatigue and early satiety. he reports 30 lb weight loss over the last year. He also has difficulty with constipation. He takes 3 stool softeners daily but often has to strain. He denies any blood in stool. No nausea or vomiting. He reports recent hospitalization at [facility] and [facility] with recent MRI and CT scan. He has still a current 1 pack per day smoker for the last 24 years. He does have a history of alcohol misuse. He was drinking 1 pt of liquor daily but states he quit 7 to 8 weeks ago. He does currently smoke marijuana. TOM LEVIN NP [address] [facility], [place], [address], [facility] & [place] 03/12/2024 22:21:54 04/16/2024 text/html PREVIOUS(03/07/20 24 VAndry Levin): is a 39 year old who was referred to our clinic due to Unintentional weight loss. Patient reports loss of appetite, nausea, fatigue and early satiety. he reports 30 lb weight loss over the last year. He also has difficulty with constipation. He takes 3 stool softeners daily but often has to strain. He denies any blood in stool. No nausea or vomiting. He reports recent hospitalization at [facility] and [facility] with recent MRI and CT scan. He has still a current 1 pack per day smoker for the last 24 years. He does have a history of alcohol misuse. He was drinking 1 pt of liquor daily but states he quit 7 to 8 weeks ago. He does currently smoke marijuana.CURRENT: Mr. Herzog is here for follow up after her EGD and colonoscopy. Biopsies from EGD showed intestinal metaplasia at the GE junction and increased eosinophils 219. He did not have esophageal biopsies taken. He was started on mirtazapine about a month ago to help with appetite stimulation. He is currently on 30 mg nightly and reports some improvement in appetite initially. according to our scale he is lost 3 lb since last visit and his BMI is currently 15.9. His previous workup at [place] and [facility] was reviewed. He has had chest x-ray, 2 CT scans of the head, CT abdomen / pelvis, CT chest which were all negative for any acute abnormality. Lab work revealed thiamine deficiency, mild electrolyte deficiency and normal TSH with slightly elevated T4. Hepatitis A, B and C were negative. Patient reports some improvement after scope. His bloating and abdominal pain have improved slightly after colonoscopy as well. He is currently taking 3 stool softeners daily which he reports helps his constipation. He has not tried the Linzess samples I gave him at last visit. TOM LEVIN, STAFF MECHANICAL ENGINEER [address], [place], [address], [place] - [facility] - [place] 04/16/2024 21:38:24
--- OUTSIDE RECORDS SUMMARY | 2025-01-28 13:47 | XMS_ITS | Referral Summary ---
Author Organization [employer] ([place], [place], [place], [place]) Address [address] [place] [address] Care Team Providers Care Industrial Safety And Health Technician Name Role Phone Rahul Doan MD Primary Care Provider + [phone] Allergies No known active allergies Medications gabapentin (NEURONTIN) 100 MG capsule Take 2 capsules (200 mg total) by mouth nightly. Max Daily Amount: 200 mg 4 Active Ventolin HFA 90 mcg/actuation inhaler Inhale 2 puffs by mouth via inhaler every 4 (four) hours as needed for wheezing or shortness of breath. 4 Active thiamine 100 MG tablet Take 2.5 tablets (250 mg total) by mouth daily. Active Active Problems Problem Noted Date Diagnosed Date Generalized weakness 01/24/2024 Social History Tobacco Use Types Packs/Day Years Used Date Smoking Tobacco: Every Day Cigarettes Passive Smoke Exposure: Current Smokeless Tobacco: Never Tobacco Cessation:Ready to Q uit: Not Asked; Counseling Given: Not Answered Alcohol Use Standard Drinks/Week Comments Not Currently 0 (1 standard drink = 0.6 oz pur e alcohol) Utilities Answer Date Recorded In the past 12 months, has t he electric, gas, oil, or water company threatened to shut off services in your home? No 01/24/2024 Interpersonal Safety Answer Date Record ed How often does anyone, pablo pastor family and friends, physically hurt you? Never 01/24/2024 How often does anyone, pablo pastor family and friends, insult or talk down to you? Never 01/24/2024 How often does anyone, pablo pastor family and friends, threaten you with harm? Never 01/24/2024 How often does anyone, inclu ding family and friends, scream or curse at you? Never 01/24/2024 Housing Stability Answer Date Recorded What is your living situation today? I have a [place] place to live 01/24/[address] you li ve. Do you have problems with any of the following? None of the above 01/24/2024 Food Insecurity Answer Date Recorded Within the past 12 months, y ou worried that your food would run out before you got money to buy more. Never true 01/24/2024 Within the past 12 months, t he food you bought just didn't last and you didn't have money to get more. Never true 01/24/2024 Transportation Needs Answer Date Record ed In the past 12 months, has l ack of reliable transportation kept you from medical appointments, meetings, work or from getting things needed for daily living? No 01/24/2024 Financial Resource Strain Answer Date R ecorded How hard is it for you to pa y for the very basics like food, housing, medical care, and heating? Would you say it is: Not hard at all 01/24/2024 Employment Answer Date Recorded Do you want help finding or keeping work or a job? I do not need or want help 01/24/2024 Family and Community Support Answer Hever e Recorded If for any reason you need h elp with day-to-day activities such as bathing, preparing meals, shopping, managing finances, etc., do you get the help you need? I don't need any help 01/24/2024 Feeling Lonely or Isolated 0 01/23 Educational Attainment Answer Date Wilton rded Do you speak a language other than Albanian at [facility]? No 01/24/2024 Do you want help with school or training? For example, starting or completing job training or getting a high school diploma, GED or equivalent. No 01/24/2024 Physical Activity Answer Date Recorded Number of minutes of exercise per week 120 01/24/2024 Self Management Answer Date Recorded Because of a physical, menta l, or emotional condition, do you have serious difficulty concentrating, remembering, or making decisions? (5 years or older) No 01/24/2024 Because of a physical, menta l, or emotional condition, do you have difficulty doing errands alone such as visiting a doctor's office or shopping? (15 years or older) No 01/24/2024 Substance Use Answer Date Recorded How many times in the past y ear have you used prescription drugs for non-medical reasons? Never 01/24/2024 How many times in the past year have you used [place] legal drugs? Never 01/24/2024 Mental Health Answer Date Recorded Calculation of above two rows 0 Sex and Gender Information Value Date Recorded Sex Assigned at Not on file Legal Sex Male 5:37 PM CDT Gender Identity Not on file Sexual Orientation Not on file Last Filed Vital Signs Vital Sign Reading Time Taken Comments Blood Pressure 131/85 2024 12:20 PM EDT Pulse 102 2024 12:20 PM EDT Temperature 36.7 C (98.1 F) 2024 12:20 PM EDT Respiratory Rate 18 2024 9:00 AM EDT Oxygen Saturation 98% 2024 9:00 AM EDT Inhaled Oxygen Concentration - - Weight 53.1 kg (117 lb) 01/25/2024 12:11 AM EDT Height 175.3 cm (5' 9 ) 01/25/2024 12:11 AM EDT Body Mass Index 17.28 01/25/2024 12:11 AM EDT Plan of Treatment Not on file Procedures Procedure Name Priority Date/Time Associated Diagnosis Comments HIV 1/2 AG/AB COMBO STAT 01/24/2024 6 :07 PM EDT from Last 3 Months or Most Recently Relevant to Health Maintenance Results * HIV 1/2 AG/AB COMBO (01/24/2024 6:07 PM EDT) HIV-1 P24 Antigen Nonreactive Nonreactive 01/24/2024 7:30 PM EDT [facility] Comment: The Combo HIV procedure is a fourth generation HIV test which detects BOTH p24 antigen AND HIV antibodies to HIV virus types 0, 1, and 2. A reactive result does not distinguish between the antigen or the antibody and does not specify which antibody is present. Additional testing is required to differentiate the component causing the reactive result. Biotin supplements can cause clinically significant incorrect lab results. The FDA has seen an increase in the number of adverse events related to biotin interference with lab tests. Blood Venipuncture / Unknown 01/24/2024 6:07 PM EDT 01/24/2024 6:11 PM EDT us Kelsie Hammond MD LAB BLOOD ORDERABLES Final Resul t [facility] [address] [id number] [phone] from Last 3 Months or Most Recently Relevant to Health Maintenance Insurance [employer] [facility] Advance Directives For more information, please contact: [phone] * Full Code (Latest Code Status on File) Date Activated Date Inactivated Comments 01/24/2024 2:58 PM 2024 2:46 PM Care Teams Industrial Safety And Health Technician Relationship Specialty Start Date End Date Rahul Doan MD [address] [place] [address] [place] [address] PCP - General Adolescent Medicine 01/24/24
--- OUTSIDE RECORDS SUMMARY | 2025-01-28 13:47 | XMS_ITS | Clinical Summary ---
Author Organization [employer] ([place], [place], [place], [place]) Address [address] [place] [address] Care Team Providers Care Commercial Glazier Name Role Phone Rahul Doan MD Primary Care Provider + [phone] Allergies No known active allergies Medications gabapentin [...] Do you speak a language other than Faroese at [facility]? No 01/24/2024 Do you want help with [...] 01/25/2024 12:11 AM EDT Plan of Treatment Health Maintenance Due Date Last Done Comments Depression Screening (12+) 1995 Hepatitis C Screening 2001 DTAP/TDAP/TD VACCINES (1 - Tdap) 2002 Pneumococcal Vaccine: 0-49 Years (1 of 2 - PCV) 2001 Lipid Panel 2018 COVID-19 VACCINE ( - season) 2024 Tobacco Cessation Counseling and Screening (12+) 01/2501/24/2024 Influenza Vaccine (#1) 2025 HIV Screening Completed 01/24/2024 Procedures Procedure Name Priority Date/Time Associated Diagnosis Comments HIV 1/2 AG/AB COMBO STAT 01/24/2024 6 :07 PM EDT from Last 3 Months or Most Recently Relevant to Health Maintenance Results * HIV 1/2 AG/AB COMBO (01/24/2024 6:07 PM EDT) HIV-1 P24 Antigen Nonreactive Nonreactive 01/24/2024 7:30 PM EDT [facility] Comment: The Combo HIV procedure [...] MD LAB BLOOD ORDERABLES Final Resul t [facility] [address] [phone] from Last 3 Months or Most Recently Relevant to Health Maintenance Insurance [facility] Advance Directives For more information, please contact: [phone] * Full Code (Latest Code Status on File) Date Activated Date Inactivated Comments 01/24/2024 2:58 PM 2024 2:46 PM Care Teams Commercial Glazier Relationship Specialty Start Date End Date Rahul Doan MD [address] [facility] [address] [place] [address] PCP - General Adolescent Medicine 01/24/24
== END 2025-01-28 23:59 | disposition home or self-care (01) ==
LOC: RAD 13:43
PROVIDERS: PCP Family Medicine; Visit Provider Nurse Practitioner Family
DX: M50.121 Cervical disc disorder at C4-C5 level with radiculopathy (principal); M50.122 Cervical disc disorder at C5-C6 level with radiculopathy; M50.123 Cervical disc disorder at C6-C7 level with radiculopathy; M99.71 Connective tissue and disc stenosis of intervertebral foramina of cervical region; R90.89 Other abnormal findings on diagnostic imaging of central nervous system; G62.9 Polyneuropathy, unspecified; G89.4 Chronic pain syndrome
CPT/HCPCS: 72141

== ENCOUNTER 2025-02-15 14:55 | Outpatient (CLI) | payer OTHER, SELFPAY ==
--- OUTSIDE RECORDS SUMMARY | 2025-02-15 14:57 | XMS_ITS | Clinical Summary ---
Author Organization [employer] ([place], [place], [place], [place]) Address [address] [place] [address] Care Team Providers Care Menagerie Superintendent Name Role Phone Rahul Doan MD Primary Care Provider + [phone] Allergies No known active allergies Medications gabapentin [...] Do you speak a language other than Occitan at [facility]? No 01/24/2024 Do you want help with [...] 2024 Tobacco Cessation Counseling and Screening (12+) 01/2301/24/2024 Influenza Vaccine (#1) 2025 HIV Screening Completed 01/24/2024 Procedures Procedure Name Priority Date/Time Associated Diagnosis Comments HIV 1/2 AG/AB COMBO STAT 01/24/2024 6 :07 PM EDT from Last 3 Months or Most Recently Relevant to Health Maintenance Results * HIV 1/2 AG/AB COMBO (01/24/2024 6:07 PM EDT) HIV-1 P24 Antigen Nonreactive Nonreactive 01/24/2024 7:[address] [facility] Comment: The Combo HIV procedure [...] MD LAB BLOOD ORDERABLES Final Resul t [facility] [address] [phone] from Last 3 Months or Most Recently Relevant to Health Maintenance Insurance AENA [facility] Advance Directives For more information, please contact: [phone] * Full Code (Latest Code Status on File) Date Activated Date Inactivated Comments 01/24/2024 2:58 PM 2024 2:46 PM Care Teams Menagerie Superintendent Relationship Specialty Start Date End Date Rahul Doan MD [address] [facility] [address] [place] [address] PCP - General Adolescent Medicine 01/24/24
--- OUTSIDE RECORDS SUMMARY | 2025-02-15 14:57 | XMS_ITS | Referral Summary ---
Author Organization [employer] ([place], [place], [place], [place]) Address [address] [place] [address] Care Team Providers Care Computer Forensics Analyst Name Role Phone Rahul Doan MD Primary Care Provider + [phone] Allergies No known active allergies Medications gabapentin [...] Do you speak a language other than Yakut at [facility]? No 01/24/2024 Do you want help [...] Antigen Nonreactive Nonreactive 01/24/2024 7:30 PM EDT [facility] Comment: The Combo HIV procedure [...] MD LAB BLOOD ORDERABLES Final Resul t [facility] [address] [id number] [phone] from Last 3 Months or Most Recently Relevant to Health Maintenance Insurance AETNA [facility] Advance Directives For more information, please contact: [phone] * Full Code (Latest Code Status on File) Date Activated Date Inactivated Comments 01/24/2024 2:58 PM 2024 2:46 PM Care Teams Computer Forensics Analyst Relationship Specialty Start Date End Date Rahul Doan MD [address] [place] [address] PCP - General Adolescent Medicine 01/24/24
--- OUTSIDE RECORDS SUMMARY | 2025-02-15 14:57 | XMS_ITS | Data Portability ---
Author Organization [place] - [facility] [place] Address [address] [place] [id number] Assessment Encounter Date Assessment Date Assessment LastModified by Organization Details LastModified Time 03/07/2024 03/07/2024 Mr. Herzog is a 39 year old male here for 1) Unintentional Weight loss 2) Early satiety - Approximately 40 lb weight loss in the last year - Records from [facility] reviewed. CT head, chest and abdomen completed. No obvious masses or identifiable cause of symptoms. CT A/P did show mild stool impaction. - Labs [facility] personally reviewed; showed polycythemia vera, elevated T4 but low TSH, and slightly elevated bilirubin, normal LFTs - Will attempt to get records from [place] as well - Schedule EGD and colonoscopy [...] in the last year - Records from [facility] and [place] reviewed. CT head, chest and abdomen completed. No obvious masses or identifiable cause of symptoms. CT A/P did show mild stool impaction. -[facility] personally reviewed; showed polycythemia vera, [...] Orders megestrol 40 mg tablet 2023 024 [employer] [employer] [facility] #[id number], [address], [phone], 4 15:19:22 pantoprazol e 40 mg tablet,adis yed release 2023 024 [employer] [facility] #[id number], [address], [phone], 4 15:19:41 Patient TargetsNo targets recorded. Patient [...] Address Organization Details Last Updated DateTime 4 06908.9 9 g 16.2 kg/m2 177.8 cm 98.1 [degF] 91 % 91 % 101 /min 91 /min 91/60 mm[Hg] Toya UNGER [facility] & [place] 14:37:12 Date Recorded Body height Body mass index (BMI) Body weight Body temperature Oxygen saturation Oxygen saturation in Arterial blood by Pulse oximetry Heart rate Heart rate Systolic And Diastolic Provider Name and Address Organization Details Last Updated DateTime 4 177.8 cm 15.9 kg/m2 26358.9 6 g 97.2 [degF] 95 % 95 % 110 /min 112 /min 94/64 mm[Hg] Toya UNGER [facility] & [place] 14:09:33 Social History Question Answer Notes LastModified by Organizat ion Details LastModified Time Tobacco Smoking Status Current Every Day Smoker Toya Larson [facility] & [place] 03/07/2024 14:39:10 What Is Your Level Of Caffeine Consumption? Moderate [email or web address] Information not available 03/07/2024 Which Illicit Or Recreational Drugs Have You Used? Marijuana Information not available 03/07/2024 How Much Tobacco Do You Smoke? 1 PPD [email or web address] Information not available 03/07/2024 Have You Used IV Drugs? No [email or web address] Information not available 03/07/2024 Sex: Unknown Functional Status Question Answer Note LastModified by Organizat ion Details LastModified Time Do you use any illicit or recreational drugs? Yes [email or web address] Information not available 03/07/2024 What is your level of alcohol consumption? None [email or web address] Information not available 03/07/2024 Mental Status None recorded. Family History Nothing Reported. Medical History No medical history recorded. Past Encounters Encounter ID Performer Location Encounter Start Date Encounter Closed Date Diagnosis/Indication Diagnosis SNOMED-CT Code Diagnosis ICD10 Code Diagnosis Note [id number] TOM LEVIN NP [facility] [address] [address] 03/07/2024 13:42:18 03/07/2024 15:36:36 Unintentional weight loss 820271759 R63.4 Alcohol dependence 60780 003 F10.20 Abdominal bloating 01438 9008 R14.0 Constipation 58401777 K5 9.00 Early satiety 864728060 R68.81 [id number] TOM LEVIN NP [facility] [address] [place] [address] 04/16/2024 13:50:29 04/16/2024 16:13:16 Unintentional weight loss 983198309 R63.4 Alcohol dependence 87484 003 F10.20 Abdominal bloating 26279 9008 R14.0 Constipation 72331308 K5 9.00 Early satiety 444749137 R68.81 Wiseman's esophagus 3029 10647 K22.70 Nicotine dependence 5629 4008 F17.200 Body mass index less than 20 038734884 Z68.1 Cachexia 127809526 R64 Health Concerns Section Related Observation LastModified by Organization Detai ls LastModified Time None Recorded Concern Status LastModified by Organization Details LastModified Time None Recorded Advance Directives Directive None Recorded Payers Insurance Date Sequence Insurance Name Policy Number Policy Gatica Covered Member ID Gatica Member ID Guarantor Name 04/14/2024 1 [facility] (MEDICAID HMO) Mino Albert [id number] Roosevelt Herzog Notes Date Note Type Note Provider Name and Address Organization Details Recorded Time 03/07/2024 text/html CURRENT(03/07/2024 Radha Levin): is a 39 year old [...] or vomiting. He reports recent hospitalization at [facility] and [facility] with recent MRI and CT scan. He has still a current 1 pack per day smoker for the last 24 years. He does have a history of alcohol misuse. He was drinking 1 pt of liquor daily but states he quit 7 to 8 weeks ago. He does currently smoke marijuana. TOM LEVIN NP [address] [facility], [place], [address], [facility] & [place] 03/12/2024 22:21:54 04/16/2024 text/html PREVIOUS(03/07/2024 Radha Levin): is a 39 year old [...] or vomiting. He reports recent hospitalization at [facility] and [facility] with recent MRI and CT scan. He [...] is currently 15.9. His previous workup at [facility] was reviewed. He has had chest [...] gave him at last visit. TOM LEVIN, NAUTICAL INSTRUMENT MECHANIC [address], [place], [address], [place] - [facility] - [place] & [place] 04/16/2024 21:38:24
--- NOTE | 2025-02-15 14:58 | MR_ITS ---
FINAL REPORT TECHNIQUE: Multiplanar MR imaging of the cervical spine was performed with and without contrast. CLINICAL HISTORY: NECK PAIN numbness in bilateral digits in hands unable to dental assisting instructor with hands abnormal prior mri on 01/28 10 ml prohance FINDINGS: Imaging shows persistent increased signal in the dorsal spinal cord at the C2 level which measures 11 x 6 mm on sagittal imaging, stable. No other levels of abnormal signal changes are present. Following contrast administration, no abnormal enhancement is seen. Differential for nonenhancing cord lesion includes demyelinating process such as MS, infection such as transverse myelitis, or other white matter disease such as MOGAD. Neoplasm is considered for less likely. IMPRESSION: Cord lesion shows no abnormal enhancement with differential as above. Reviewed, Interpreted and Dictated by Clark Azar MD Transcribed by Ella Talavera Authenticated and [facility]
[2025-02-15] MEDS: SODIUM CHLORIDE 0.9% 10ML SYR (RAD ONLY) 10 ML IV (15:42)
[2025-02-15] MEDS: GADOTERIDOL INJ 10ML SYRINGE 10 ML IV (15:42)
== END 2025-02-15 23:59 | disposition home or self-care (01) ==
LOC: RAD 14:56
PROVIDERS: PCP Family Medicine; Visit Provider Nurse Practitioner Family
DX: G95.9 Disease of spinal cord, unspecified (principal); M54.2 Cervicalgia
CPT/HCPCS: 72142; A9576

== ENCOUNTER 2025-02-22 14:12 | Outpatient (POV) | payer OTHER, SELFPAY ==
--- OUTSIDE RECORDS SUMMARY | 2025-02-22 14:15 | XMS_ITS | Referral Summary ---
Author Organization [employer] ([place], [place], [place], [place]) Address [address] [place] [address] Care Team Providers Care Senior Account Executive Name Role Phone Rahul Doan MD Primary Care Provider + [phone] Allergies No known active allergies Medications gabapentin [...] Do you speak a language other than Georgian at [facility]? No 01/24/2024 Do you want help with [...] Antigen Nonreactive Nonreactive 01/24/2024 7:30 PM EDT [facility] Comment: The Combo HIV procedure [...] MD LAB BLOOD ORDERABLES Final Resul t [facility] [address] [id number] [phone] from Last 3 Months or Most Recently Relevant to Health Maintenance Insurance AETNA [facility] Advance Directives For more information, please contact: [phone] * Full Code (Latest Code Status on File) Date Activated Date Inactivated Comments 01/24/2024 2:58 PM 2024 2:46 PM Care Teams Senior Account Executive Relationship Specialty Start Date End Date Rahul Doan MD [address] [place] [address] PCP - General Adolescent Medicine 01/24/24
--- OUTSIDE RECORDS SUMMARY | 2025-02-22 14:15 | XMS_ITS | Clinical Summary ---
Author Organization [employer] ([place], [place], [place], [place]) Address [address] [place] [address] Care Team Providers Care Underwriting Manager Name Role Phone Rahul Doan MD Primary Care Provider + [phone] Allergies No known active allergies Medications gabapentin [...] speak a language other than Albanian at [facility]? No 01/24/2024 Do you want [...] Antigen Nonreactive Nonreactive 01/24/2024 7:30 PM EDT [facility] Comment: The Combo HIV [...] MD LAB BLOOD ORDERABLES Final Resul t [facility] [address] [phone] from Last 3 Months or Most Recently Relevant to Health Maintenance Insurance AENA [facility] Advance Directives For more information, please contact: [phone] * Full Code (Latest Code Status on File) Date Activated Date Inactivated Comments 01/24/2024 2:58 PM 2024 2:46 PM Care Teams Underwriting Manager Relationship Specialty Start Date End Date Rahul Doan MD [address] [facility] [address] [place] [address] PCP - General Adolescent Medicine 01/24/24
[2025-02-22 14:36] VITALS: BP 102/64; PULSE 83; RESP 14; O2SAT 100; BMI 18.6
--- NOTE | 2025-02-22 14:43 | A.OFFVIS_ITS ---
[facility] Disclaimer: The information contained in this section may have been updated after the patient was seen, as this information can be updated by other users. Medical History (Updated 12/10/24 @ 13:42 by Latosha Maria APRN) Alcoholic peripheral neuropathy Chronic alcohol abuse Peripheral neuropathy Alcohol abuse Marijuana use Macrocytosis without anemia Generalized weakness Depression Neuropathy Surgical History [place] teeth extracted Family History Other Cancer Heart attack Skin cancer Social History Smoking Status: Current every day smoker tobacco type: cigarettes packs per day: 1 alcohol intake: current alcohol intake frequency: holidays/special occasions only substance use type: marijuana current occupational status: other Travel in the last 8 weeks?: None household members: none housing: apartment marital status: number of children: 2 PM Subjective & Objective Subjective Subjective:: Patient is a pleasant 40-year-old male who presents today for follow-up of his cervical MRI. Today he rates his pain a 2 out of 10 currently but does state that the numbness and tingling is constant in his bilateral hands and then it is at least a 5. Patient does state that he has had the EMG testing for his upper extremities with Dr. Potts. Patient denies any new falls or injuries. Patient has continued conservative therapy with no additional improvement. Patient at our last visit had been discussed the possibility of a cervical epidural. 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 Patient was previously taking gabapentin to help with some of the symptoms related to the nerve pain however he states he has not been using that. His Afshin has been reviewed and is appropriate. Review of Systems: General: No recent weight changes, no fever, no sleep disturbances Respiratory: No cough, no shortness of air, no recurring pulmonary infections Cardiovascular/peripheral vascular: No chest pain, no palpitations, no edema, no shortness of breath Gastrointestinal: No new onset incontinence, normal bowel movements reported Genitourinary: No new onset incontinence Musculoskeletal: Chronic numbness tingling upper extremities and lower extremities Psychiatric: [Normal mood/affect] Neurological: [Denies weakness in extremities], [denies balance issues] Pain at rest (0-10 scale): 5 Objective Objective:: Physical Exam: General: Alert and oriented x3, no acute distress, pleasant and cooperative Lungs: Respirations even and unlabored, symmetrical chest expansion Eyes: PERRL Musculoskeletal: Flexion and extension of cervical [spine] somewhat guarded secondary to pain, [antalgic gait noted] positive Spurling's test Neurological: Speech clear, no gross sensory deficit Has patient had previous pain injection?: No Conservative treatment options previously tried: Home exercise plan Length of treatment: Longer than 12 weeks and Physical Therapy Length of treatment: 6-8 sessions with no additional improvement Meds Home Medications and Allergies Home Medications ?Medication ?Instructions ?Recorded ?Confirmed ?Type albuterol sulfate 90 mcg/actuation 2 inh inhalation Q4 -6H #8.5 grams 08/31/24 02/22/25 Rx aerosol inhaler folic acid 1 mg tablet 1 mg PO DAILY #60 tabs 08/3102/22/25 Rx gabapentin 300 mg capsule 300 mg PO TID #90 caps 08/3102/22/25 Rx multivitamin 1 tab PO DAILY #30 tabs /02/1502/22/25 Rx thiamine HCl (vitamin B1) 250 mg 250 mg PO DAILY Alcoh ol related 08/31/24 02/22/25 Rx tablet neuropathy #90 tabs baclofen 5 mg tablet 5 mg PO TID #42 tabs 5 Rx New Prescriptions to Start Prescriptions: baclofen Latosha Maria Allergies Allergy/AdvReac Type Severity Reaction Status Date / Time No Known Allergies Allergy Verified 12/06/24 11:31 Assessment and Plan *Assessment and plan (1) Chronic pain syndrome: Status: Acute Category: Medical Code(s): G89.4 - Chronic pain syndrome (2) Cervical radiculopathy: Status: Acute Category: Medical Code(s): M54.12 - Radiculopathy, cervical region (3) Numbness and tingling of both upper extremities: Status: Chronic Category: Medical Code(s): R20.0 - Anesthesia of skin; R20.2 - Paresthesia of skin Plan I did review over with the patient regarding his MRI as well as the MRI with and without contrast. Patient does have an area of abnormal signal around the C2 level. His last imaging did list possible differentials as multiple sclerosis or infection or white matter disease. I did discuss with him regarding his chronic paresthesia symptoms as well as previous altered gait and other significant findings that I would like to refer him back to Dr. Potts to review over any additional testing that may need to be done to rule out some of these differentials. Patient is agreeable to this. Patient has been dealing with the numbness and tingling for longer than 2 years. Patient is experiencing worseni ng pain in their neck with radiating tingling and burning sensations into their bilateral upper extremities. Patient did have limited range of motion of her cervical spine with a positive Spurling's test. I did discuss with the patient that I do believe they would benefit from a cervical epidural steroid injection. Risk and benefits were discussed with patient and they would like to proceed forward with this plan of care. Patient has tried and failed conservative therapy including oral medications, heat and ice, topicals, physical therapy and continued at home stretching exercise for longer than 12 weeks that was physician guided. Patient has never had any cervical epidurals in the past to compare to. I did also discuss with the patient regarding his EMG findings that did show carpal tunnel syndrome and ulnar nerve entrapment which may be also causing worsening numbness and tingling. I did discuss with the patient we will see how he does with the cervical epidural however in future it may be beneficial to refer him to orthopedic for possible surgical intervention for the ulnar and median nerve entrapment. We will follow-up with this in future. I do still believe that the patient would benefit from spinal cord stimulator trial in future. We will see how he does in future with the injections and other therapies before proceeding forward with this option. I did discuss with the patient regarding trying baclofen as needed and have sent a prescription of 5 mg 3 times daily as needed. Patient will be scheduled for a BERTHA C6-C7 under fluoroscopy. Patient denies any blood thinners. Patient has been instructed to contact the clinic with any concerns before the next appointment. Dr. Hill has reviewed this note and agrees with this plan of care. This note was dictated using voice recognition software and make contain errors or omissions. All injections are used with Lidocaine, Bupivacaine and dexamethasone unless otherwise stated as a diagnostic in which it has no steroid. Occasionally urine drug screen is needed to verify patient's compliance with our office pain contract. This is ordered based off specific treatments related to chronic pain with the potential to abuse certain medications.
== END 2025-02-22 23:59 | disposition home or self-care (01) ==
PROVIDERS: PCP Family Medicine; Visit Provider Nurse Practitioner Family
DX: G89.4 Chronic pain syndrome (principal); M54.12 Radiculopathy, cervical region
CPT/HCPCS: 99212; G0463

== ENCOUNTER 2025-04-16 09:57 | Day surgery (SDC) | payer OTHER, SELFPAY ==
[2025-04-16 10:10] VITALS: BP 102/78; PULSE 96; RESP 16; O2SAT 98; BMI 19.2
[2025-04-16] MEDS: IOPAMIDOL-200 (41%);10ML VIAL 3 ML IV (10:15)
[2025-04-16] MEDS: DEXAMETHASONE 10MG/ML 1ML VIAL 10 MG (10:16)
--- NOTE | 2025-04-16 10:23 | P.PCN_ITS ---
Procedure Date: 04/16/25 Time: 10:00 Anesthesiologist:: Cecilio Canales CRNA Complications:: None Pre-procedure Diagnosis:: Degenerative disc cervical spine multilevels. Cervical radiculopathy. Cervical disc bulge C4-5 through C6-7. Post-procedure Diagnosis:: Same. Indications for Procedure:: Patient is a very pleasant 40-year-old male comes our clinic today for cervical epidural steroid injection. Patient describes cervical neck pain as constant, dull, aching. He also reports bilateral arm radicular symptoms at times. He rates his pain 7/10. Procedure Details:: Procedure:Cervical epidural steroid injection Informed consent was obtained and the risks and benefits of the procedure were explained to the patient. The patient was taken to the procedure room and noninvasive monitors placed, including noninvasive blood pressure cuff and pulse oximeter. The neck was prepped using Chloraprep as a cleansing solution. The C6- C7 interspace was viewed using fluroscopy. The skin and subcutaneous tissues were anesthetized using lidocaine 1.5% and a 25-gauge needle. After this an 18- gauge Touhy epidural needle was placed into the C6-C7 interspace under fluroscopy guidance and advanced using loss of resistance to air until the e pidural space was encountered. After confirmation of needle placement in the epidural space using contrast dye, dexamethasone 10 mg ( 1 ML) was incrementally injected into the cervical epidural space.~ The patient tolerated the procedure well with no complications. The patient was observed in the Pain Clinic and then discharged home neurologically intact. Plan and Disposition:: Patient was discharged without incident.
[2025-04-16 10:35] VITALS: BP 151/100; PULSE 94; RESP 18; O2SAT 95
[2025-04-16 10:37] VITALS: BP 151/100; PULSE 94; RESP 18; O2SAT 95
[2025-04-16 10:40] VITALS: BP 115/79; PULSE 91; RESP 18; O2SAT 97
== END 2025-04-16 10:40 | disposition home or self-care (01) ==
PROVIDERS: PCP Family Medicine; Visit Provider Nurse Anesthetist, Certified Registered
DX: M50.121 Cervical disc disorder at C4-C5 level with radiculopathy (principal); M50.122 Cervical disc disorder at C5-C6 level with radiculopathy; M50.123 Cervical disc disorder at C6-C7 level with radiculopathy; G62.1 Alcoholic polyneuropathy
CPT/HCPCS: 62321; J1100; Q9966

== ENCOUNTER 2025-04-29 08:06 | Outpatient (CLI) | payer OTHER, SELFPAY ==
--- OUTSIDE RECORDS SUMMARY | 2023-11-14 11:15 | XMS_ITS ---
Author Organization [facility]isha Address [address] [facility] [address] [place] [phone] Care Team Providers Care Pharmaceutical Process Engineer Name Role Phone Kaitlin Cooper Primary Care Provider [phone] Avinash Yeung [phone] Allergies No Known Allergies REASON FOR VISIT 3 week f/u on labs Medications Medication SIG (Take, Route, Frequency, Duration) Notes Start Date End Date Status Thiamine HCl 100 MG 1 tablet Orally Once a day; Duration: 90 days 11/14/2023 Active Ventolin HFA 108 (90 Base) MCG/ACT 2 puffs by inhalation every 6 hrs as needed 11/14/2023 Active Gabapentin 100 MG 2 Orally At Bed Time ; Duration: 30 day(s) 11/14/2023 Active Ventolin HFA 108 (90 Base) MCG/ACT 1 puff as needed Inhalation every 4 hrs Stop ProAir 11/08/2023 Not-Taking Vital Signs Blood pressure systolic 114 mm Hg 11/14/19 24 Blood pressure diastolic 80 mm Hg 024 Heart Rate 102 /min 11/14/2023 Height 70.50 in 11/14/2023 Weight 132.4 lbs 11/14/2023 BMI 18.73 kg/m2 11/14/2023 Encounters Encounter Location Date Provider Diagnosis [facility] [address] [place] [phone] 11/14/2023 Avinash Yeung Vitamin B1 deficienc y E51.9 ; Vitamin B12 deficiency E53.8 ; ETOH abuse F10.10 ; Paresthesias R20.2 and History of asthma Z87.09 Assessments Encounter Date Diagnosis (ICD Code) Assessment Notes Treatment Notes Treatment Clinical Notes Section Notes 11/14/2023 Vitamin B1 deficiency (ICD-10 - E51.9) 11/14/2023 Vitamin B12 deficiency (ICD-10 - E53.8) 11/14/2023 ETOH abuse (ICD-10 - F10.10) 11/14/2023 Paresthesias (ICD-10 - R20.2) 11/14/2023 History of asthma (ICD-10 - Z87.09) Plan Of Treatment Medication Medication Name Sig Start Date Stop Date Notes Thiamine HCl 100 MG 1 tablet Orally Once a day; Duration: 90 days 11/14/2023 Ventolin HFA 108 (90 Base) MCG/ACT 2 puffs by inhalation every 6 hrs as needed 11/14/2023 Gabapentin 100 MG 2 Orally At Bed Time ; Duration: 30 day(s) 11/14/2023 Next Appt Details Follow Up: 2 Months, Reason: Progress Notes * Roosevelt GLASSDOB:[birth year] (40 yo M)Acc No.[id number]:11/14/2023 Patient: Roosevelt VEGA Provider: Avinash Yeung M.D. :1985 A ge:38 Y S ex:Male Date:11/14/2023 Address:[address] [place], [place] [address], [id number] Pcp:Kaitlin Cooper Subjective: * Chief Complaints: * 1 . 3 week f/u on labs. * HPI: N eurology: The patient is here for a check up on Paraesthesia and abnormal lab studies. Pt states the numbness is doing about the same. Pt states he is having constant pain in his finger and toes. 38 year old male presents with c/o paraesthesia. * ROS: D ERMATOLOGY: no R awa. n o H cornel. G ASTROENTEROLOGY: no N ausea. n o V omiting. n o D iarrhea.? U ROLOGY: no D ifficulty urinating. n o B lood in urine. * Medical History: A sthma. * Family History: F ather: alive 56 yrs, Heart attack. M other: alive 57 yrs, skin cancer of face. 1 brother(s) , 1 sister(s) . . * Social History: C URRENT TOBACCO USE S moking Status: Patient does smoke, packs per day: 1, number of cigarettes per day: 20, Since age of: 13, Smoking preference: cigarettes. C affeine: yes, frequency: mt dew daily. Home smoke detector use: yes. Past smoking status: yes, Smoking status: Patient does smoke, Packs per day: 1, Since age of: 13, Smoking preference: cigarettes. Alcohol: Yes, Type: whiskey , Frequency:socially ,Years: , Determination:. * Medications: N ot-Taking Ventolin HFA 108 (90 Base) MCG/ACT Aerosol Solution 1 puff as needed Inhalation every 4 hrs , Notes to Pharmacist: Stop ProAir, Medication List reviewed and reconciled with the patient * Allergies: N .K.D.A. Objective: * Vitals: W t:132.4, Temp:98.2, BP:114/80, HR:102, Nurse:SHONDA, Ht: 70.50, BMI:18.73. * Examination: G eneral Examination: General Appearance: N AD. H EENT: S clera and conjunctiva clear, PERRLA, fundi WNL, discs sharp, no nystagmus. O ral cavity: n o lesions, mucosa moist and WNL, no erythema. N carlos: s upple, no lymphadenopathy. C hest: n ormal shape and expansion. H eart: R SR. L ungs: c lear to auscultation. A bdomen: soft and nontender, no organomegaly or masses. N eurologic Exam: I ntact, gait normal.?Skin: n ormal, no rash. P eripheral pulses: n ormal (2+) bilaterally. B ack: normal. E xtremities: n o leg edema, pulses 2 plus bilaterally, brisk capillary refill.? Assessment: * Assessment: 1. V itamin B1 deficiency - E51.9 (Primary) 2 . V itamin B12 deficiency - E53.8 3 . E KATY abuse - F10.10 4 . P aresthesias - R20.2 5 . H istory of asthma - Z87.09 Plan: * Treatment: 2. P aresthesias Start Gabapentin Capsule, 100 MG, 2, Orally, At Bed Time, 30 day(s), 60, Refills 2. 3. H istory of asthma Start Ventolin HFA Aerosol Solution, 108 (90 Base) MCG/ACT, 2 puffs, by inhalation, every 6 hrs as needed, 1, Refills 3. * Follow Up: 2 Months * Images: Billing Information: * Visit Code: 05125 Office Visit, Est Pt., Level 3. * Procedure Codes: * Electronic signature of Avinash Yeung MD on 04/29/2025 at 08:13 AM EDT Sign off status: Pending * Provider: Avinash Yeung M.D. Date: 0 11/14/2023 Generated for Guillerminai millie/Oli/eTransmitting on: 1 08:13 AM EDT History and Physical Notes * HPI (History of Present Illness) Category Sub-Category Detail Notes Category Not es Neurology paraesthesia Examination Category Sub-Category Detail Notes Category Not es General Examination HEENT: Sclera and c onjunctiva clear, PERRLA, fundi WNL, discs sharp, no nystagmus Heart: RSR Lungs: clear to auscultatio n Abdomen: soft and nontender, no organomegaly or masses Extremities: no leg edema, pulses 2 plus bilaterally, brisk capillary refill General Appearance: NAD Skin: normal, no rash Neurologic Exam: Intact, gait normal Neck: supple, no lymphaden opathy Oral cavity: no lesions, mucosa m oist and WNL, no erythema Peripheral pulses: normal (2+) bilatera lly Back: normal Chest: normal shape and exp ansion
--- OUTSIDE RECORDS SUMMARY | 2024-01-16 07:15 | XMS_ITS ---
Author Organization [facility] Address [address] [facility] [address] [place] [phone] Care Team Providers Care Executive Wellness Programs Director Name Role Phone Kaitlin Cooper Primary Care Provider [phone] Avinash Aguero [phone] Allergies No Known Allergies REASON FOR VISIT 2 Month Follow Up Medications Medication SIG (Take, Route, Frequency, Duration) Notes Start Date End Date Status Gabapentin 100 MG 2 Orally At Bed Time ; Duration: 30 day(s) 11/14/2023 Active Ventolin HFA 108 (90 Base) MCG/ACT 2 puffs by inhalation every 6 hrs as needed 11/14/2023 Active Thiamine HCl 100 MG 1 tablet Orally Once a day; Duration: 90 days 11/14/2023 Active Encounters Encounter Location Date Provider Diagnosis [facility] [address] [place] [phone] 01/16/2024 Avinash Yeung Plan Of Treatment No Information Progress Notes * Roosevelt GLASSDOB:[birth year] (40 yo M)Acc No.[id number]:01/16/2024 Progress Notes Patient: Roosevelt VEGA Provider: Avinash Yeung M.D. :1985 A ge:38 Y S ex:Male Date:01/16/2024 Address[address] [id number] Pcp:Kaitlin Cooper Subjective: * Chief Complaints: * 1 . 2 Month Follow Up. * ROS: D ERMATOLOGY: no R awa. [...] , Frequency:socially ,Years: , Determination:. * Medications: T aking Thiamine HCl 100 MG Tablet 1 tablet Orally Once a day , Taking Ventolin HFA 108 (90 Base) MCG/ACT Aerosol Solution 2 puffs by inhalation every 6 hrs as needed , Taking Gabapentin 100 MG Capsule 2 Orally At Bed Time , Discontinued Ventolin HFA 108 (90 Base) MCG/ACT Aerosol Solution 1 puff as needed Inhalation every 4 hrs , Notes to Pharmacist: Stop ProAir * Allergies: N .K.D.A. Objective: * Vitals: Assessment: Plan: * Treatment: * Images: Billing Information: * Visit Code: * Procedure Codes: * Electronic signature of Avinash Yeung MD on 04/29/2025 at 08:12 AM EDT Sign off status: Pending * Provider: Avinash Yeung M.D. Date: 0 01/16/2024 Generated for Rhonda pinto/Oli/Mai on: 08:12 AM EDT
--- OUTSIDE RECORDS SUMMARY | 2025-04-29 08:12 | XMS_ITS | Patient Health Record ---
[facility] Address [address] [facility] [address] [id number] Care Team Providers Care Field Property Loss Specialist Name Role Phone Kaitlin Cooper Primary Care Provider [phone] Allergies No Known Allergies Reason For Referral No Information Medications Medication SIG (Take, Route, Frequency, Duration) Notes Start Date End Date Status Gabapentin 100 MG 2 Orally At Bed Time ; Duration: 30 day(s) 11/14/2023 Active Ventolin HFA 108 (90 Base) MCG/ACT 2 puffs by inhalation every 6 hrs as needed 11/14/2023 Active Thiamine HCl 100 MG 1 tablet Orally Once a day; Duration: 90 days 11/14/2023 Active Immunizations Vaccine Route Administration Date Status Comme nts Tetanus Tdap-Adacel (over 7yrs) IM Intramuscular 12/07/2011 Administered Problems Problem Type SNOMED Code ICD Code Onset Dates Problem Status W/U Status Risk Notes Problem Asthma (504866187) ASTHMA NOS (493.90) Active confirmed Problem Insomnia (564069216) Insomnia (G47.00) Active confirmed Problem Gastroesophageal reflux disease without esophagitis (032006261) Gastroesophageal reflux disease without esophagitis (K21.9) Active confirmed Problem Paresthesia (finding) (46113144) Paresthesias (R20.2) Active confirmed Problem Idiopathic peripheral neuropathy (60486969) Idiopathic peripheral neuropathy (G60.9) Active confirmed Problem Ethanol abuse (21015083) ETOH abuse (F10.10) Active confirmed Problem Tobacco user (591208911) Cigarette nicotine dependence without complication (F17.210) Active confirmed Problem Asthma without status asthmaticus (31543757) Uncomplicated asthma, unspecified asthma severity, unspecified whether persistent (J45.909) Active confirmed Plan Of Treatment No Information Insurance Providers Payer Name Payer Address Payer Phone Subscriber Number Group Number Insured Name Patient Relationship to Insured Coverage Start Date Coverage End Date AETNA [facility] [address] [place], [place] [id number] Roosevelt Tate Self - patient is the insured Medical (General) History Medical History History ICD Code asthma Surgical History Surgery Date(Month/Year)
--- OUTSIDE RECORDS SUMMARY | 2025-04-29 08:13 | XMS_ITS | Referral Summary ---
Author Organization [employer] ([place], [place], [place], [place]) Address [address] [place] [address] Care Team Providers Care Chief Of Anesthesiology Name Role Phone Rahul Doan MD Primary Care Provider + [phone] Allergies No known active allergies Medications gabapentin [...] Do you speak a language other than [place] at [facility]? No 01/24/2024 Do you want help with [...] you used [place] drugs? Never 01/24/2024 Sex and Gender Information Value Date Recorded [...] Nonreactive Nonreactive 01/24/2024 7:[address] [facility] Comment: The Combo HIV procedure is [...] LAB BLOOD ORDERABLES Final Resul t [facility] [address] [place] [address], [facility] [phone] from Last 3 Months or Most Recently Relevant to Health Maintenance Insurance [employer] [facility] Advance Directives For more information, please contact: [phone] * Full Code (Latest Code Status on File) Date Activated Date Inactivated Comments 01/24/2024 2:58 PM 2024 2:46 PM Care Teams Chief Of Anesthesiology Relationship Specialty Start Date End Date Rahul Doan MD [address] [place] [id number] PCP - General Adolescent Medicine 01/24/24
--- OUTSIDE RECORDS SUMMARY | 2025-04-29 08:13 | XMS_ITS | Clinical Summary ---
Author Organization [employer] ([place], [place], [place], [place]) Address [address] [place] [address] Care Team Providers Care Section Repairer Name Role Phone Rahul Doan MD Primary Care Provider + [phone] Allergies No known active allergies Medications gabapentin [...] Do you speak a language other than [place]ian at [facility]? No 01/24/2024 Do you want help [...] 2 - PCV) 2001 Lipid Panel 2018 Tobacco Cessation Counseling and Screening (12+) 01/2301/24/2024 COVID-19 VACCINE (1 - 2023- season) 2025 Influenza Vaccine (#1) 2025 HIV Screening Completed 01/24/2024 Procedures Procedure Name Priority Date/Time Associated Diagnosis Comments HIV 1/2 AG/AB COMBO STAT 01/24/2024 6 :07 PM EDT from Last 3 Months or Most Recently Relevant to Health Maintenance Results * HIV 1/2 AG/AB COMBO (01/24/2024 6:07 PM EDT) HIV-1 P24 Antigen Nonreactive Nonreactive 01/24/2024 7:30 PM EDT [facility] Comment: The Combo HIV procedure is [...] MD LAB BLOOD ORDERABLES Final Resul t [facility] [address] [phone] from Last 3 Months or Most Recently Relevant to Health Maintenance [facility] Advance Directives For more information, please contact: [phone] * Full Code (Latest Code Status on File) Date Activated Date Inactivated Comments 01/24/2024 2:58 PM 2024 2:46 PM Care Teams Section Repairer Relationship Specialty Start Date End Date Rahul Doan MD [address] [place] [id number] PCP - General Adolescent Medicine 01/24/24
--- NOTE | 2025-04-29 08:15 | MR_ITS ---
FINAL REPORT TECHNIQUE: Multiplanar and multisequence imaging of the brain was obtained without contrast. CLINICAL HISTORY: recent mri of c spine showed signal abnormality at C2. evaluation of the brain recently had a lumbar puncture concern for MS, worsening of symptoms bilateral hand numbness COMPARISON: None FINDINGS: Brain parenchymal: There is no mass effect or midline shift. There are no areas of abnormal signal intensity within the posterior fossa. Abnormal T2 signal within the posterior aspect of the proximal spinal cord at the level of C2-3. Ventricles: No hydrocephalus. Several foci of T2 abnormality in the periventricular and subcortical white matter bilaterally. Extra-axial spaces: No extra-axial fluid collections. Diffusion imaging: No areas of restricted diffusion to suggest acute infarct. Flow voids: Flow voids within the major intracranial vessels are preserved. Soft tissues: Mucosal thickening of the turbinates within the right nasal cavity. No air-fluid levels in the paranasal sinuses, but mild mucoperiosteal thickening is noted in the bilateral maxillary sinuses. 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 Reviewed, Interpreted and Dictated by Radha Keith MD Transcribed by Anne Clifford Authenticated and [facility]
== END 2025-04-29 23:59 | disposition home or self-care (01) ==
LOC: RAD 08:06
PROVIDERS: PCP Family Medicine; Visit Provider Specialist
DX: R90.89 Other abnormal findings on diagnostic imaging of central nervous system (principal); R90.82 White matter disease, unspecified; G37.9 Demyelinating disease of central nervous system, unspecified
CPT/HCPCS: 70551

== ENCOUNTER 2025-05-01 10:22 | Outpatient (CLI) | payer OTHER, SELFPAY ==
[2025-05-01 10:44] VITALS: BP 117/77; PULSE 74; RESP 20; TEMP 36.7; O2SAT 99
[2025-05-01] MEDS: METHYLPREDN SOD SUCC 1,000 MG in 0.9 % SODIUM CHLORIDE 250 ML 500 MG IV (10:44)
[2025-05-01] MEDS: SODIUM CHLORIDE 0.9% 10ML FLUSH SYRINGE 10 ML IV (10:45)
[2025-05-01 11:20] VITALS: BP 121/72; PULSE 78; RESP 20; O2SAT 99
== END 2025-05-01 23:59 | disposition home or self-care (01) ==
LOC: INF 10:23
PROVIDERS: PCP Family Medicine; Visit Provider Family Medicine
DX: G35.D Multiple sclerosis, unspecified (principal)
CPT/HCPCS: 96365; J2919; J7050

== ENCOUNTER 2025-05-02 13:03 | Outpatient (CLI) | payer OTHER, SELFPAY ==
[2025-05-02] MEDS: SODIUM CHLORIDE 0.9% 10ML FLUSH SYRINGE 10 ML IV (13:21)
[2025-05-02 13:22] VITALS: BP 121/83; PULSE 92; RESP 16; TEMP 36.9; O2SAT 98
[2025-05-02] MEDS: METHYLPREDN SOD SUCC 1,000 MG in 0.9 % SODIUM CHLORIDE 250 ML 500 MG IV (13:22)
[2025-05-02 14:00] VITALS: BP 153/67; PULSE 101; RESP 16; TEMP 36.9; O2SAT 98
== END 2025-05-02 23:59 | disposition home or self-care (01) ==
LOC: INF 13:04
PROVIDERS: PCP Family Medicine; Visit Provider Family Medicine
DX: G35.D Multiple sclerosis, unspecified (principal)
CPT/HCPCS: 96365; J2919; J7050

== ENCOUNTER 2025-05-03 12:58 | Outpatient (CLI) | payer OTHER, SELFPAY ==
[2025-05-03] MEDS: SODIUM CHLORIDE 0.9% 10ML FLUSH SYRINGE 10 ML IV (13:06)
[2025-05-03 13:15] VITALS: BP 132/74; PULSE 86; RESP 16; TEMP 36.3; O2SAT 99
[2025-05-03] MEDS: METHYLPREDN SOD SUCC 1,000 MG in 0.9 % SODIUM CHLORIDE 250 ML 500 MG IV (13:15)
[2025-05-03 13:45] VITALS: BP 145/95; PULSE 105; RESP 18; O2SAT 99
== END 2025-05-03 23:59 | disposition home or self-care (01) ==
LOC: INF 12:59
PROVIDERS: PCP Family Medicine; Visit Provider Family Medicine
DX: G35.D Multiple sclerosis, unspecified (principal)
CPT/HCPCS: 96365; 96374; J2919; J7050

== ENCOUNTER 2025-06-25 13:13 | Outpatient (CLI) | payer OTHER, SELFPAY ==
--- NOTE | 2025-06-25 | ECG_ITS ---
APPROVED REPORT Exam: Resting ECG HR:68 bpm ECG Measurements Heart Rate 68 AXES [place] 130 P 83 QRSd 89 QRS 79 QT 346 T 81 QTc 364 Conclusion SINUS RHYTHM WITH SINUS ARRHYTHMIA NORMAL ECG UNCONFIRMED REPORT Electronically signed by : Rahul Doan MD 06/26/2025 08:43:53
== END 2025-06-25 23:59 | disposition home or self-care (01) ==
PROVIDERS: PCP Family Medicine; Visit Provider Psychiatry & Neurology Neurology
DX: I49.8 Other specified cardiac arrhythmias (principal); G35.A Relapsing-remitting multiple sclerosis; R00.0 Tachycardia, unspecified
CPT/HCPCS: 93005